=== PATIENT | female | born 1950 | race Caucasian/White ===

== ENCOUNTER → 2018-03-24 11:49 | Outpatient (CLI) | payer MEDICARE, SELFPAY ==
[2018-03-24 12:32] LABS: Add Manual Diff / Slide Review NO; Eosinophils Percent Auto 2.2 % (2-4); Hemoglobin 14.1 g/dL (12.0-16.0); Lymphocytes Percent Auto 22.8 % (25-40); Mean Corpuscular HGB Conc 33.6 % (30-36); Mean Corpuscular Hemoglobin 31.5 PG (26-34); Mean Corpuscular Volume 93.7 fL (80-100); Monocytes Percent Auto 6.2 % (3-14); Neutrophils Absolute Auto 5000 /uL (3000-5900); Neutrophils Percent Auto 67.8 % (50-75); Platelet Count 230 X10^3/uL (150-400); Red Blood Cell Count 4.48 X10^6/uL (4.0-5.2); Red Cell Distribution Width 13.3 % (11.6-14.8); White Blood Cell Count 7.4 X10^3/uL (4.5-11.0)
[2018-03-24 12:45] LABS: Hemoglobin A1C% w Est Avg Glu 4.9 % (4.0-6.0)
[2018-03-24 13:05] LABS: Appearance Urine UA CLEAR; Bilirubin Urine UA NEGATIVE (NEGATIVE); Color Urine UA YELLOW; Glucose Urine UA NEGATIVE (Normal); Ketones Urine UA TRACE (NEGATIVE); Leukocyte Esterase Urine UA NEGATIVE (NEGATIVE); Nitrite Urine UA POSITIVE (Negative); Occult Blood Urine UA 2+ (Negative); Protein Urine UA NEGATIVE (Negative); Specific Gravity Urine UA 1.025 (1.000-1.035); Urobilinogen Urine UA 0.2 E.U./dL (0.2)
[2018-03-24 13:28] LABS: Bacteria Urine Many (>30); Culture Indicated Urine Specimen Cultured; RBC Urine 0-1/HPF (0-5/HPF); Squamous Epithelial Cell Urine 1-5 /HPF; WBC Urine 1-5/HPF (0-5/HPF)
[2018-03-24 13:31] LABS: BUN Creatinine Ratio 31.4 (6-22); Blood Urea Nitrogen 22 mg/dL (7-17); Calcium 9.2 mg/dL (8.4-10.2); Carbon Dioxide 27 mmol/L (22-32); Chloride 107 mmol/L (98-107); Estimated Glomerular Filt Rate > 60.0 mL/min (>60); Glucose 121 mg/dL (80-110); HEMOLYSIS < 15 (0-50); Potassium 4.3 mmol/L (3.4-5.1); Sodium 144 mmol/L (137-145)
== END ==
PROVIDERS: PCP Internal Medicine; Visit Provider Orthopaedic Surgery
DX: Z01.818 Encounter for other preprocedural examination (principal); Z01.812 Encounter for preprocedural laboratory examination; N39.9 Disorder of urinary system, unspecified; R73.09 Other abnormal glucose
CPT/HCPCS: 36415; 80048; 81001; 83036; 85025; 87077; 87086; 87186

== ENCOUNTER 2018-04-08 06:32 | Inpatient (IN) | payer MEDICARE, SELFPAY ==
[2018-04-04 13:29] VITALS: BMI 34.3
[2018-04-08] VITALS (14 sets, daily range): BP systolic 83–137; BP diastolic 48–92; PULSE 64–82; RESP 15–20; TEMP 35.8–36.8; O2SAT 92–100; BMI 34.3
--- NOTE | 2018-04-08 | DI.RAD.S_ITS ---
PROCEDURE: XR HIP W PEL IF DONE LT 2V INDICATIONS: post operative left hip TECHNIQUE: AP pelvis and lateral view of the left hip acquired. COMPARISON: [facility], , XR PELVIS 1-2V, 04/08/2018, 8:59. FINDINGS: Bones: Patient is status post left hip arthroplasty, with hardware components in expected positions. The hip joint appears congruent. The visualized bony structures appear intact. Advanced degenerative changes of the right hip are present. There is moderate degenerative changes of the included lower lumbosacral spine. Soft tissues: Overlying postoperative changes are noted. No suspicious soft tissue densities. Expected postoperative changes within the soft tissues are within the left hip are present. No unexpected radiopaque foreign bodies are identified. IMPRESSION: Expected postoperative changes related to a left hip arthroplasty. Dictated by: Milton Gustafson M.D. on 04/08/2018 at 10:08 Approved by: Milton Gustafson M.D. on 04/08/2018 at 10:09
--- NOTE | 2018-04-08 06:30 | DI.RAD.S_ITS ---
PROCEDURE: XR PELVIS 1-2V INDICATIONS: intra-operative left hip TECHNIQUE: Intra-operative view of the pelvis and hip acquired. [facility] [place], [place] PELVIS WITH BILATERAL LATERAL HIPS, 03/28/2018, 16:32. FINDINGS: Bones: Intraoperative devices prior to placement of arthroplasty prostheses are in expected positions. No fractures or suspicious bony lesions. Soft tissues: Overlying surgical retractors are present, along with other intraoperative changes. IMPRESSION: Intraoperative image obtained during the patient's left hip arthroplasty. Dictated by: Milton Gustafson M.D. on 04/08/2018 at 9:44 Approved by: Milton Gustafson M.D. on 04/08/2018 at 9:44
[2018-04-08] MEDS: LACTATED RINGERS 1,000 ML 42 ML IV ×2 (07:10→09:45)
[2018-04-08] MEDS: VANCOMYCIN 1,000 MG/200 ML FROZ.PIGGY 200 MG IV (07:10)
--- NOTE | 2018-04-08 07:32 | P.OP.PRE_ITS ---
Pre-operative Note Interval Note Pre-op Check: Yes History & Physical Reviewed by Physician and Yes Exam Performed Changes: No H&P completed within 30 days and has changed as indicated here:: bacteria noted on preop labs, no symptoms, took abx this morning on empty stomach, mild nausea , no other symptoms
--- NOTE | 2018-04-08 07:32 | PM.OP.1 ---
Operative Date/Time/Diagnoses Date of procedure: 04/08/18 Time of procedure: 10:32 Pre-op diagnosis: left hip oa Post-op diagnosis: same Procedure & Clinicians Procedure: left total hip arthroplasty Same procedure as scheduled: Yes Indications: The patient has had progressively worsening left hip pain with radiographic changes consistent with arthritis. Non-operative management has failed and the patient has requested total hip replacement. The risks, benefits and alternatives to surgery were discussed with the patient prior to proceeding. Risks discussed included, but were not limited to, failure to relieve pain, leg length discrepancy, dislocation, stiffness, infection, nerve damage, deep venous thrombosis, pulmonary embolism, stroke, coma, heart attack, permanent paralysis and , as well as the potential need for eventual revision of the prosthetic. Surgeon: Kait Peace Convertible Power Shovel Operator: Holli Cyr Anesthesia Type: Spinal Operative Notes Findings: Severe left hip osteoarthritis Closure Type: primary Specimen(s): none sent Implants & Drains: Peace and Nephew R3 46, anthology 4 so, +4 Applied: drain(s) Estimated Blood Loss (mL): 200 Blood products transfused: none Procedure in detail: The patient was seen in the pre-operative area, where the patient identified the left hip as the operative site and this was marked with my initials. The patient received pre-operative antibiotics and was taken to the operating room and placed on the operative table in the right lateral decubitus position after satisfactory anesthesia. A telesales supervisor out was performed. The left leg was prepared from the ankle to the iliac crest with ChloroPrep in the usual fashion and draped through sterile drapes. The hip was approached through an approximately 20 cm incision centered over the greater trochanter and curving gently posteriorly as it went proximally. This was carried sharply to the fascia zahra, which was divided and retracted with a self retaining retractor. The trochanteric bursa was excised with care being taken to avoid the sciatic nerve, which was identified and protected throughout the case. The short external rotators were incised and the capsulomuscular flap was raised and tagged for later repair. The hip was dislocated, and a femoral neck osteotomy performed approximately 15 mm above the lesser trochanter. Retractors were placed around the femur. The canal was opened with a box cutting osteotome, followed by a T handled reamer and a lateralizing reamer. The chili pepper broach was then used, followed by sequential broaching until there was good stability of the broach in the femur. Retractors were placed to expose the acetabulum. The labrum and central soft tissues were removed. Reaming was performed initially going up in 2 mm increments, then 1 mm increments until good bite was obtained with an odd sized reamer. The cup 1 mm larger than the last reamer was then inserted using the appropriate anteversion guides. A trial neutral liner was placed. The broach was placed in the canal. A trial head and neck were then placed and the hip relocated and checked for leg length and stability. An intraoperative film confirmed the component position and no evidence of fracture. She had some mild instability in both maximum extension and in hyperflexion. A bony tamp was used to adjust the cup position by about 10 degrees and it was further impacted. It was checked and noted to be stable. A repeat trial reduction with a 4 anthology and a +4 head showed good stability. The patient was stable in the position of sleep, of squatting, and could be put through a range of motion with 45 degrees internal rotation without dislocation. At 90 degrees flexion, internal rotation to 60 was possible before dislocation. This was felt to be satisfactory and the appropriate components were opened, and the trials were removed. The acetabular liner was impacted into position. The final stem was then impacted into the prepared femoral canal. A brief Betadine soak was performed while trialing with head options. The hip was meticulously irrigated with normal saline. Finally the femoral head was impacted onto the stem. The acetabulum was cleared of all material and the hip relocated one final time. The capsulomuscular flap was then repaired to the greater trochanter though an awl hole using the tag sutures. The short external rotators were repaired with a black braided nylon. A deep drain was placed and brought out anteriorly. The fascia zahra was closed with interupted poyester. The subcutaneous layer was closed with barbed sutures and SteriStrips. An Aquacel Ag dressing was applied and the patient was taken to recovery having tolerated the procedure well. Complications: none Condition: stable Disposition: Acute Care Plan for aftercare: The patient will be maintained on a standard total hip replacement protocol with weight bearing as tolerated and posterior hip precautions. The patient will receive Aspirin and sequential compression devices for DVT prophylaxis. The patient will be discharged home when safe for the home environment.
[2018-04-08] MEDS: ONDANSETRON 4 MG/2 ML INJ IV ×3 (07:35→19:46)
[2018-04-08] MEDS: CELECOXIB 200 MG CAPSULE PO (07:41)
[2018-04-08] MEDS: ACETAMINOPHEN 325 MG TABLET 975 MG PO ×2 (07:42→22:43)
[2018-04-08] MEDS: CEFAZOLIN 2 GM/100 ML FROZ.PIGGY IV ×3 (07:48→23:54)
[2018-04-08] MEDS: BUPIVACAINE 0.25% W/ EPI VIAL 50 ML INJ (08:40)
[2018-04-08] MEDS: BUPIVACAINE LIPOSOME 266 MG/20 ML VIAL INJ (08:41)
[2018-04-08] MEDS: SODIUM CHLORIDE IRRIG SOLUTION 250 ML, EPINEPHrine 1 MG IRR (08:43)
[2018-04-08] MEDS: POVIDONE-IODINE 15 ML, SODIUM CHLORIDE 0.9% 250 ML TOP (08:44)
[2018-04-08] MEDS: SODIUM CHLORIDE IRRIG SOLUTION 1,000 ML BOTTLE 1000 ML IRR (08:53)
--- NOTE | 2018-04-08 10:20 | SUR.OPER ---
Lateral on padded OR bed. Gel axillary roll. Arms secured on padded armboard with pillow supporting top arm. Padded hip positioner braces x4 - anterior and posterior chest and pelvis. Additional gel pad used anterior pelvis. Gel pad under bottom leg from knee to foot and secured with tape over sheet.
--- NOTE | 2018-04-08 10:40 | SUR.PHASEI ---
X-ray at bedside to obtain left hip post-op films - per MD orders
[2018-04-08] MEDS: LACTATED RINGERS 1,000 ML 125 ML IV ×2 (14:17→23:45)
--- NOTE | 2018-04-08 14:50 | PT.IIE ---
Current Diagnoses Unilateral primary osteoarthritis, left hip (04/08/18) Surgery Performed Operation Date: 04/08/18 07:45 Actual Procedures p Total Hip Arthroplasty(Left) - Kait Peace MD Surgical History (Last Updated 04/04/18 @ 14:12 by Barbra Cueto, RN) H/O rotator cuff surgery (Acute ~07/1994) History of ankle surgery (Acute) History of cholecystectomy (Acute ~08/2000) History of lumpectomy of left breast (Acute ~2015) History of tonsillectomy (Acute) Status post rotator cuff repair (Acute) Medical History (Last Updated 04/04/18 @ 14:21 by Barbra Cueto, RN) Alcohol abuse (Acute) Alcohol abuse, uncomplicated (Acute) Difficulty sleeping (Acute) Sekou's thyroiditis (Acute) Hip pain (Acute) History of hysterectomy (Acute ~11/2004) History of shingles (Acute) Hypothyroidism, unspecified (Acute) Invasive ductal carcinoma of left breast (Acute ~2015) Macular degeneration (Acute) Major depressive disorder, recurrent, moderate (Acute) Obesity (Acute) Osteoarthritis of left hip (Acute) Osteopenia (Acute) Other specified disorders of bone density and structure, unspecified site (Acute) Postmenopausal (Acute) Primary localized osteoarthrosis of pelvic region (Acute) Right knee DJD (Acute) Tear of meniscus of left knee (Acute) Physical Therapy Inpatient Evaluation/Re-Eval M1 PT/OT-IP Prior Functional Status Start: 04/08/18 17:03 Freq: NEEDED Status: Active Protocol: Document 04/08/18 14:50 AB (Rec: 04/08/18 17:17 AB [email or web address]) Medical Review Prior Functional Status Medical History Reviewed Yes Communication able to make needs known Mobility and Gait pt stated that she is modified independent with all mobilities and ambulation without AD but has used a SPC for the last 2 weeks due to hip pain Social History Household Members none Living Arrangements RV Number of Floors (Floors) One Floor Number of Stairs To Enter/Railing? has 3 steps to enter with R handle on the door. pt plans to rent a hotel room until she is able to move better to go back home. Home Equipment Front Wheel Walker Straight Cane Employment Status Retired Additional Social History Comment pt has a community toilet in her RV park: has a walk in shower with shower chair/grab brs and a high toilet with grab bars. M2 PT-IP Current Condition Start: 04/08/18 17:03 Freq: NEEDED Status: Active Protocol: Document 04/08/18 14:50 AB (Rec: 04/08/18 17:17 AB [email or web address]) Physical Therapy Current Condition Current Condition Evaluation Date 04/08/18 Treatment Diagnosis s/p L ORLY posterior approach; difficulty in walking Onset Date 04/08/18 Precautions Posterior Hip Precautions No Hip Flexion > 90 degrees No Hip Internal Rotation No Hip Adduction Weight Bearing Status Weight Bearing Status Weight Bear as Tolerated M3 PT-IP Subjective Start: 04/08/18 17:03 Freq: NEEDED Status: Active Protocol: Document 04/08/18 14:50 AB (Rec: 04/08/18 17:17 AB [email or web address]) Subjective Physical Therapy Visit Type Type Initial Evaluation Visit Start Time 14:50 Visit Stop Time 15:30 Total Visit Minutes 40 Number of COPY CLERK Visits 0 Physical Therapy Visit Comments Patient Comments i want to make sure I can get up and use the toilet Therapy Pain Assessment Pain Present Pain Present Denied Pain M4 PT-IP Mobility and Gait Start: 04/08/18 17:03 Freq: NEEDED Status: Active Protocol: Document 04/08/18 14:50 AB (Rec: 04/08/18 17:17 AB [email or web address]) PT-Bed Mobility Assessment Supine to Sit Supine to Sit Standby Assistance Sit to Supine Sit to Supine Minimal Assistance PT-Transfer Assessment Comments Mobility Comments pt has c/o nausea and with (+) emesis prior to activity but stated that she is feeling better after vomiting and wanted to get up and use at least the bedside commode. BP in supine: 101/65. pt completed supine to sit SBA and cues. pt was able to sit on EOB SBA and tolerated ~ 15 sec and then c/o dizziness and stated that she has to lie back down and completed sit to supine min A with LE. positioned pt in bed. nurse is aware of nausea/vomiting and dizziness. BP in supine: 122/75. pt refused further activity and just wants to rest for right now. PT-Balance Assessment Sitting Balance and Reactions Static Sitting Balance Ability Good Dynamic Sitting Balance Ability Fair M5 PT-IP Objective Assessments Start: 04/08/18 17:03 Freq: NEEDED Status: Active Protocol: Document 04/08/18 14:50 AB (Rec: 04/08/18 17:17 AB [email or web address]) Orientation Orientation/Cognition Level of Alertness Alert Orientation Name Age Birthday Month Date Year Day of Week Place Situation Safety Awareness Decreased Safety Awareness Gross Range of Motion Lower Extremity ROM Assessment Within Functional Limits Strength Lower Extremity Strength Assessment Left Impaired Knee 3+/5 M6 PT-IP Treatment Start: 04/08/18 17:03 Freq: NEEDED Status: Active Protocol: Document 04/08/18 14:50 AB (Rec: 04/08/18 17:17 AB [email or web address]) Physical Therapy Treatment Education Education Provided Precautions Weight Bearing Status Post-Op Packet Safety M7 PT-IP Assessment and Plan Start: 04/08/18 17:03 Freq: NEEDED Status: Active Protocol: Document 04/08/18 14:50 AB (Rec: 04/08/18 17:17 AB [email or web address]) PT Summary Assessment and Plan Potential Rehabilitation Potential Fair Status of Condition at Evaluation Evolving Summary Impairments Pain ROM Strength Balance Coordination Sensation Tone Cognition Bed Mobility Transfers Gait Activity Tolerance Assessment Summary pt was not able to tolerate much activity today with c/o nausea with (+) emesis and dizziness. will need to assess further to determine d/ c plan but pt more than likely will require SNF rehab as pt does not have any assistance at home. Goals Bed Mobility Goal Standby Assistance Transfer Goal Standby Assistance Front Wheeled Walker Gait Goal Standby Assistance Front Wheel Walker Gait Distance 100 Days to Meet Goals 3 Frequency of Treatment Frequency Of Treatment Twice a Day Treatment Plan Physical Therapy Treatment Plan Bed Mobility Training Transfer Training Gait Training Therapeutic Exercise Balance Retraining Post Op Education Discharge Planning Hot or Cold Pack Neuromuscular Re-ed Coordination Retraining Manual Therapy Other Recommendations and Next Treatment ambulation Focus Recommendations To Nursing Amount of Assist Needed 2 Person Assist Discharge Recommendations PT Discharge Recommendations SNF Rehab
--- NOTE | 2018-04-08 15:37 | PC.NURSE ---
Ortho: Decreased BP in OR, PACU nurse started a fluid bolus there and it was finished up on floor. Initial bp was 90's systolic and then 89 systolic p 64 Sat 96, RR 14. Bp then drifted down to 78/38, pt was given some oral fluids and after that laid flat. Bp then up to 90's systolic and even has had 1 bp in the 100's systolic. RR has stayed between 14-18, Cont pulse ox is on and sats have been 95% to 100% on RA. Explained epidural precautions and need of O2 sat monitoring and freq vs. Can move toes and can feel someone touching her feet but the sensation she reports is odd. PPP, feet =/warm, brisk cap refill. Aquacel dressing c/d/i, hemovac compressed and patent for 35mls of red fluid. No void yet since surgery and on coming RN was made aware. Pt has also recently started po antibiotics for uti and message sent to OR to continue med, still has 3 more days of therapy. At the end of the shift pt had some n/v and she is receiving med for same from daa shift oncoming RN. Hopefully will feel better. Cont w/poc.
--- NOTE | 2018-04-08 22:32 | PC.NURSE ---
Addendum entered by Genevieve Gant R.N. 04/08/18 22:33: kept patient from eating this shift. Had one bout of emesis at the very beginning of shift but did not vomit for the remainder of the shift. Vital remained stable, with her blood pressure trending in the 90's systollically. She states her baseline has been in the 140's systollically. was unable to get up with physical therapy due to some light headedness and then again was unable to stand up to the bedside commode later in the shift with continued light headedness when she dangled at the bedside. Did not attempt to get out of bed. Zofran administered twice with mild effect. Tolerated a couple of crackers and some broth. Denies pain, and otherwise VSS. Hemovac compressed and draining, dressing c/d/i. CMS intact to lower extremities. Utilizes call light appropriately and makes needs known. Original Note: pt continued to complain of residual nausea and general discomfort that
[2018-04-08] MEDS: DOCUSATE 100 MG CAPSULE PO (22:44)
[2018-04-08] MEDS: ASPIRIN EC 81 MG TABLET PO (22:44)
[2018-04-09 04:05] VITALS: BP 102/66; PULSE 71; RESP 16; TEMP 36.4; O2SAT 95
[2018-04-09] MEDS: LEVOTHYROXINE 125 MCG TABLET PO (06:09)
[2018-04-09 06:24] LABS: Hemoglobin 10.9 g/dL (12.0-16.0)
--- NOTE | 2018-04-09 06:36 | PC.NURSE ---
Pt ambulated to the BR earlier this morning. CMS intact. denied n/v. BP low-asymptomatic. denied pain. call light in reach. bed alarm active. encouraged pt to drink fluids.
[2018-04-09 07:40] VITALS: BP 101/40; PULSE 70; RESP 16; TEMP 36.6; O2SAT 97
--- NOTE | 2018-04-09 08:08 | P.PN_ITS ---
Subjective Date Patient Seen: 04/09/18 Time Patient Seen: 07:48 Interval history: Post op day 1 status post L total hip arthroplasty with Dr. Peace. Patient is laying in bed comfortably without any signs of distress. She reports that her pain is well managed. She reports feeling nausea last night, however it has resolved with 4mg zofran. She also reports that PT came yesterday however she was too nauseated to participate. She reports living in a RV and would like to talk to care management regarding going to SNF. She reports ambulating to bathroom this morning with assistance. She denies and fever, chest pain, SOB, vomiting or chills. Overall, she is doing well. Exam Vital Signs (past 8 hours): - 04/09/18 04:05 Temperature 97.6 F Pulse Rate 71 Respiratory Rate 16 Blood Pressure 102/66 Pulse Oximetry 95 Oxygen Delivery Method Room Air Oxygen Flow Rate 0 Narrative Exam Narrative: Patient is AOx3. She is a pleasant lady in no acute distress. Radial and dorsalis pedis pulses 2+ and symmetric. Muscle strength 5/5 in dorsiflexion, plantarflexion and metal tank builder bilaterally. No neurological deficit noted. Sensation to LE intact with light touch bilaterally. Wound vac noted on L hip with mild output. Dressing noted on L hip and is CDI. DVT compression devices noted on LE bilaterally. Calfs are soft, non tender and compressible bilaterally. Objective Labs Result Diagrams: 04/09/18 06:09 Labs: Laboratory Results - last 24 hr 04/09/18 06:09 Hgb 10.9 L Hct 31.0 L Assessment & Plan Post-op Postoperative Procedures Operation Date: 04/08/18 07:45 Actual Procedures Side Surgeon p Total Hip Arthroplasty Left Kait Peace MD Postoperative day: 1 Postoperative status: doing well Postoperative plan: routine post-op care Postoperative plan narrative: Start mobilizing with PT on a standard total hip replacement protocol with weight bearing as tolerated and posterior hip precautions. Continue Aspirin and sequential compression devices for DVT prophylaxis. Case management has been consulted regarding SNF. Likely to be discharged to SNF in 1-2 days. Time Spent With Patient less than 15 minutes
[2018-04-09] MEDS: ACETAMINOPHEN 325 MG TABLET 975 MG PO ×3 (09:51→20:51)
[2018-04-09] MEDS: DOCUSATE 100 MG CAPSULE PO ×2 (09:52→20:51)
[2018-04-09] MEDS: ASPIRIN EC 81 MG TABLET PO ×2 (09:52→20:51)
[2018-04-09] MEDS: IBUPROFEN 600 MG TABLET PO ×2 (09:53→22:33)
[2018-04-09] MEDS: INFLUENZA VACCINE 0.5 ML SYRINGE IM (10:05)
[2018-04-09] MEDS: SULFA/TRIMETH 800/160 (DS) TABLET 1 TAB PO ×2 (10:10→20:51)
--- NOTE | 2018-04-09 10:55 | PT.IPTN ---
Current Diagnoses Unilateral primary osteoarthritis, left hip (04/08/18) Surgery Performed Operation Date: 04/08/18 07:45 Actual Procedures p Total Hip Arthroplasty(Left) - Kait Peace MD Physical Therapy Treatment Note M2 PT-IP Current Condition Start: 04/08/18 17:03 Freq: NEEDED Status: Active Protocol: Document 04/08/18 14:50 AB (Rec: 04/08/18 17:17 AB [email or web address]) Physical Therapy Current Condition Current Condition Evaluation Date 04/08/18 Treatment Diagnosis s/p L ORLY posterior approach; difficulty in walking Onset Date 04/08/18 Precautions Posterior Hip Precautions No Hip Flexion > 90 degrees No Hip Internal Rotation No Hip Adduction Weight Bearing Status Weight Bearing Status Weight Bear as Tolerated M3 PT-IP Subjective Start: 04/08/18 17:03 Freq: NEEDED Status: Active Protocol: Document 04/09/18 10:55 GGD (Rec: 04/09/18 12:35 GGD [id number]) Subjective Physical Therapy Visit Type Type Treatment Note Visit Start Time 10:25 Visit Stop Time 10:55 Total Visit Minutes 30 Number of CREATIVE DEVELOPER Visits 1 Physical Therapy Visit Comments Patient Comments Pt states she been getting up a lot to go to the bathroom. Therapy Pain Assessment Pain When Pain Assessed At Rest Pain Present Pain Present Denied Pain Location Left Hip Intensity 1 Scale Used Numeric (1 - 10) Pain Management Techniques Timing of Activity with Medications M4 PT-IP Mobility and Gait Start: 04/08/18 17:03 Freq: NEEDED Status: Active Protocol: Document 04/09/18 10:55 GGD (Rec: 04/09/18 12:35 GGD [id number]) PT-Transfer Assessment Sit to and From Stand Sit to and from Stand Contact Guard Assistance Use of Upper Extremities Equipment Transfer Assistive Device Bed Rail Front Wheeled Walker Orthotic/Prosthetic Devices or Brace: No Transfers Transfer Destination Chair Comments Mobility Comments BP in sitting 126/58 Gait Assessment Gait Gait Assistance Required: Contact Guard Assist Distance (Feet) 100 Able to Maintain Weight Bearing Status Yes During Gait Assistive Devices Assistive Device Gait Belt Front Wheeled Walker Orthotic/Prosthetic Devices or Brace: No Gait Deviations General Gait Pattern Antalgic Decreased Stride Length Factors Limiting Gait Function Factors Limiting Gait Function Limited Range of Motion Pain M5 PT-IP Objective Assessments Start: 04/08/18 17:03 Freq: NEEDED Status: Active Protocol: Document 04/08/18 14:50 AB (Rec: 04/08/18 17:17 AB [email or web address]) Orientation Orientation/Cognition Level of Alertness Alert Orientation Name Age Birthday Month Date Year Day of Week Place Situation Safety Awareness Decreased Safety Awareness Gross Range of Motion Lower Extremity ROM Assessment Within Functional Limits Strength Lower Extremity Strength Assessment Left Impaired Knee 3+/5 M6 PT-IP Treatment Start: 04/08/18 17:03 Freq: NEEDED Status: Active Protocol: Document 04/09/18 10:55 GGD (Rec: 04/09/18 12:35 GGD [id number]) Physical Therapy Treatment Exercises Exercises Ankle Pumps Gluteal Sets Quad Sets Supine Hip Abduction Seated Knee Flexion/Extension Education Education Provided Precautions M7 PT-IP Assessment and Plan Start: 04/08/18 17:03 Freq: NEEDED Status: Active Protocol: Document 04/09/18 10:55 GGD (Rec: 04/09/18 12:35 GGD [id number]) PT Summary Assessment and Plan Summary Assessment Summary Pt able to progress gait. She is improving with mobility and pain control. She had no dizziness with gait. She may need SNF rehab, due to not having assistance at home and living in without a bathroom. Frequency of Treatment Frequency Of Treatment Twice a Day Treatment Plan Physical Therapy Treatment Plan Bed Mobility Training Transfer Training Gait Training Therapeutic Exercise Balance Retraining Post Op Education Discharge Planning Hot or Cold Pack Neuromuscular Re-ed Coordination Retraining Manual Therapy Recommendations To Nursing Amount of Assist Needed 1 Person Assist Discharge Recommendations PT Discharge Recommendations SNF Rehab
--- NOTE | 2018-04-09 15:06 | OT.IP.EVAL ---
Current Diagnoses Unilateral primary osteoarthritis, left hip (04/08/18) Surgery Performed Operation Date: 04/08/18 07:45 Actual Procedures p Total Hip Arthroplasty(Left) - Kait Peace MD Past Medical History (Last Updated 04/04/18 @ 14:21 by Barbra Cueto, RN) Alcohol abuse (Acute) Alcohol abuse, uncomplicated (Acute) Difficulty sleeping (Acute) Sekou's thyroiditis (Acute) Hip pain (Acute) History of hysterectomy (Acute ~11/2004) History of shingles (Acute) Hypothyroidism, unspecified (Acute) Invasive ductal carcinoma of left breast (Acute ~2016) Macular degeneration (Acute) Major depressive disorder, recurrent, moderate (Acute) Obesity (Acute) Osteoarthritis of left hip (Acute) Osteopenia (Acute) Other specified disorders of bone density and structure, unspecified site (Acute) Postmenopausal (Acute) Primary localized osteoarthrosis of pelvic region (Acute) Right knee DJD (Acute) Tear of meniscus of left knee (Acute) Surgical History (Last Updated 04/04/18 @ 14:12 by Barbra Cueto RN) H/O rotator cuff surgery (Acute ~07/1994) History of ankle surgery (Acute) History of cholecystectomy (Acute ~08/2000) History of lumpectomy of left breast (Acute ~2015) History of tonsillectomy (Acute) Status post rotator cuff repair (Acute) Occupational Therapy Inpatient Evaluation/Re-Eval M1 PT/OT-IP Prior Functional Status Start: 04/08/18 17:03 Freq: NEEDED Status: Active Protocol: Document 04/09/18 15:06 FABIAN (Rec: 04/09/18 17:21 [facility] [id number]) Medical Review Prior Functional Status Medical History Reviewed Yes Diet/Fluid Consistency Regular Communication WNL Mobility and Gait pt stated that she is modified independent with all mobilities and ambulation without AD but has used a SPC for the last 2 weeks due to hip pain Activities of Daily Living and IADL's Pt independent and drives 20 ft self contained RV. Social History Household Members none Living Arrangements RV Number of Floors (Floors) One Floor Number of Stairs To Enter/Railing? 3 with R hand external handle on side door of 20 ft RV Additional Social History Comment RV has very low camping toilet. Pt uses community bathroom for toileting and showering. Pt plans to go to hot room until L ORLY posterior hip precautions d/c'd. M2 OT-IP Current Condition Start: 04/09/18 17:06 Freq: Status: Active Protocol: Document 04/09/18 15:06 PJM (Rec: 04/09/18 17:21 PJM [email or web address]) Occupational Therapy Current Condition Current Condition Evaluation Date 04/09/18 Treatment Diagnosis decreased self care, functional mobility after L ORLY Diagnosis Onset Date 04/08/18 Post Operative Precautions Posterior Hip Precautions No Hip Flexion > 90 degrees No Hip Internal Rotation No Hip Adduction Weight Bearing Status Weight Bearing Status Weight Bear as Tolerated M3 OT- IP Subjective and Pain Start: 04/09/18 17:06 Freq: Status: Active Protocol: Document 04/09/18 15:06 PJM (Rec: 04/09/18 17:21 PJM [email or web address]) OT- Subjective Occupational Therapy Visit Type Type Initial Evaluation Visit Start Time 14:22 Visit Stop Time 15:06 Total Visit Minutes 44 Occupational Therapy Visit Comments Patient Comments I think I need to go to rehab , then I will get an accessible hotel room until my precautions are done. Patient/Caregiver Goals to go to [place] in her RV for the winter OT Pain Assessment Pain When Pain Assessed At Rest Pain Present Pain Present Pain Reported Location Left Hip Intensity 4 Scale Used Numeric (1 - 10) Description Aching Acute M4 OT- IP ADL's Start: 04/09/18 17:06 Freq: Status: Active Protocol: Document 04/09/18 15:06 PJM (Rec: 04/09/18 17:21 PJM [email or web address]) OT [id number] General Evaluation Self-Feeding Ability Independent Comments OT Self-Feeding Comments in bed or chair OT ADL-Grooming General Evaluation Grooming Ability Standby Assistance Areas Needing Assistance Retrieving/Set-up of Grooming Items Combing/Brushing Hair Face Washing Comments OT Grooming Comments in bed or chair OT ADL-Oral Care General Eval Oral Care Ability Standby Assistance Areas of Assistance Retrieving/Set-Up of Items Devices Oral Care Devices Toothbrush Comments Oral Care Comments in bed or chair OT ADL-Dressing General Eval Upper Body Dressing Ability Standby Assistance Lower Body Dressing Ability Maximum Assistance Areas Needing Assistance Underpants/Brief Pants/Shorts Socks Shoes Assistive Devices Dressing Assistive Devices Long Handled Shoe Horn Organic Lab Worker Sock Aid Comments OT Dressing Comments Pt has cotton header and long shoe horn; daughter to bring them in. Provided hard sock aid. OT ADL-Toileting Comments OT Toileting Comments did not occur this session; pt concerned about nida care and provided education re: toilet paper aids and resources OT ADL-Bathing Comments OT Bathing Comments to be assessed as activity tolerance improves M5 OT- IP IADL's Start: 04/09/18 17:06 Freq: Status: Active Protocol: Document 04/09/18 15:06 PJM (Rec: 04/09/18 17:21 PJM NR) OT-Instrumental Activities of Daily Living Deficits IADL Deficits Identified Deficits Home Safety Awareness Awareness of Need for Assistance at Home Good Awareness Ability to Problem Solve Emergency Able to Problem Solve Situations Medication Management Medication Management No Deficits Identified Money Management Money Management No Deficits Identified Meal Preparation Meal Preparation Comments pt will need assist with grocery shopping and meal prep Driving Driving Comments pt needs assist at present; has high 20 ft RV to enter M6 OT- IP Functional Cognition Start: 04/09/18 17:06 Freq: Status: Active Protocol: Document 04/09/18 15:06 PJM (Rec: 04/09/18 17:21 PJM NR) Cognitive Factors Limiting Selfcare Function Cognitive Ability Level of Alertness Alert Patient Orientation Name Age Birthday Month Date Year Day of Week Place Situation Attention Span Ability Capable of Focused Attention Capable of Sustained Attention Ability to Follow Commands Able to Follow One Step Commands Memory Description No Deficits Noted Safety Awareness No Deficits Noted Problem Solving Ability No deficits Noted Cognitive Comments Cognitive Assessment Comments appears WFL OT- Vision and Hearing OT- Hearing Assessment OT- Hearing Assessment WFL OT- Vision Assessment Visual Acuity WFL Glasses All The Time Vision Assessment Comments pt denies recent changes M7 OT- IP Mobility and Balance Start: 04/09/18 17:06 Freq: Status: Active Protocol: Document 04/09/18 15:06 PJM (Rec: 04/09/18 17:21 PJ NR) OT-Transfer Assessment Comments Mobility Comments see P.T. notes OT- Gait Assessment Comments Gait Ability Comments see P.T. notes OT- Balance Assessment Comments Other Balance Tests/Deviations/Treatment see P.T. notes : M8 OT- IP Objective Assessments Start: 04/09/18 17:06 Freq: Status: Active Protocol: Document 04/09/18 15:06 PJM (Rec: 04/09/18 17:21 PJM [email or web address]) OT Gross Range of Motion Upper Extremity Range of Motion Assessment Within Functional Limits OT Strength Upper Extremity Strength Assessment Within Functional Limits OT- Coordination Assessment Comments Coordination Comments BUE WFL OT-Muscle Tone Assessment Muscle Tone WNL Yes OT Sensation Assessment Comments Summary Comments BUE WNL M9 OT- IP Assessment and Plan Start: 04/09/18 17:06 Freq: Status: Active Protocol: Document 04/09/18 15:06 PJShawna (Rec: 04/09/18 17:21 PJM [email or web address]) OT Summary Assessment and Plan Potential Rehabilitation Potential Excellent Analytic Complexity at Evaluation Low Summary OT Impairments Pain Strength Balance Functional Mobility Grooming Dressing Toileting Bathing Toilet Transfers Shower Transfers Assessment Summary Low complexity OT assessment completed with emphasis on self care skills within posterior total hip precautions. Pt currently has significant performance deficits in all functional mobility, transfers standing grooming, lower body dressing, bathing, toileting and all IADLS. She normally lives alone in 20 ft self contained and travels to [facility] in summer and to [place] in winter. Pt not safe to return back to . Recommend SNF at d/c, after which pt plans to stay in accessible hotel room until hip precautions have been discontinued. Goals Grooming Goal Contact Guard Assistance Dressing Goal Minimal Assistance Toileting Goal Standby Assistance Toilet Paper Aid Bathing Goal Minimal Assistance Grab Bars Hand Held Shower Sprayer Long Handled Sponge or [place] Toilet Transfer Goal Contact Guard Assistance Shower Transfer Goal Contact Guard Assistance Patient/Caregiver Education Goal Demonstrate Post-Op Precautions Demonstrate Energy Conservation and Pacing Caregiver Independent Assisting Patient OT-Other Goals Grooming to be done standing at sink Days to Meet Goals 3 Frequency of Treatment Frequency Of Treatment Once a Day Treatment Plan OT Treatment Plan ADL Training Functional Mobility Patient/Family Education Discharge Planning Discharge Recommendations OT Discharge Recommendations SNF Rehab Home Equipment Needs pt to order toilet paper aid, build up height of camping toilet in RV
[2018-04-09 16:07] VITALS: BP 87/52; PULSE 74; RESP 16; TEMP 36.8; O2SAT 95
--- NOTE | 2018-04-09 16:29 | PT.IPTN ---
Current Diagnoses Unilateral primary osteoarthritis, left hip (04/08/18) Surgery Performed Operation Date: 04/08/18 07:45 Actual Procedures p Total Hip Arthroplasty(Left) - Kait Peace MD Physical Therapy Treatment Note M2 PT-IP Current Condition Start: 04/08/18 17:03 Freq: NEEDED Status: Active Protocol: Document 04/08/18 14:50 AB (Rec: 04/08/18 17:17 AB [email or web address]) Physical Therapy Current Condition Current Condition Evaluation Date 04/08/18 Treatment Diagnosis s/p L ORLY posterior approach; difficulty in walking Onset Date 04/08/18 Precautions Posterior Hip Precautions No Hip Flexion > 90 degrees No Hip Internal Rotation No Hip Adduction Weight Bearing Status Weight Bearing Status Weight Bear as Tolerated M3 PT-IP Subjective Start: 04/08/18 17:03 Freq: NEEDED Status: Active Protocol: Document 04/09/18 16:20 GGD (Rec: 04/09/18 16:29 GGD [id number]) Subjective Physical Therapy Visit Type Type Treatment Note Visit Start Time 15:55 Visit Stop Time 16:20 Total Visit Minutes 25 Number of WORK ORDER DETAILER Visits 2 Physical Therapy Visit Comments Patient Comments Pt states she having trouble getting in and out of bed. Therapy Pain Assessment Pain When Pain Assessed During Mobility Pain Present Pain Present Pain Reported Location Left Hip Intensity 3 Scale Used Numeric (1 - 10) Pain Management Techniques Timing of Activity with Medications M4 PT-IP Mobility and Gait Start: 04/08/18 17:03 Freq: NEEDED Status: Active Protocol: Document 04/09/18 16:20 GGD (Rec: 04/09/18 16:29 GGD [id number]) PT-Bed Mobility Assessment Supine to Sit Supine to Sit Standby Assistance Head of Bed Elevated Bedrails Sit to Supine Sit to Supine Contact Guard Assistance Scooting Scooting to Edge of Bed Minimal Assistance PT-Transfer Assessment Sit to and From Stand Sit to and from Stand Contact Guard Assistance Use of Upper Extremities Equipment Transfer Assistive Device Gait Belt Front Wheeled Walker Orthotic/Prosthetic Devices or Brace: No Transfers Transfer Destination Bed Toilet Gait Assessment Gait Gait Assistance Required: Contact Guard Assist Distance (Feet) 225 Able to Maintain Weight Bearing Status Yes During Gait Assistive Devices Assistive Device Gait Belt Front Wheeled Walker Orthotic/Prosthetic Devices or Brace: No Gait Deviations General Gait Pattern Decreased Stride Length Factors Limiting Gait Function Factors Limiting Gait Function Decreased Strength Limited Range of Motion Pain M5 PT-IP Objective Assessments Start: 04/08/18 17:03 Freq: NEEDED Status: Active Protocol: Document 04/08/18 14:50 AB (Rec: 04/08/18 17:17 AB [email or web address]) Orientation Orientation/Cognition Level of Alertness Alert Orientation Name Age Birthday Month Date Year Day of Week Place Situation Safety Awareness Decreased Safety Awareness Gross Range of Motion Lower Extremity ROM Assessment Within Functional Limits Strength Lower Extremity Strength Assessment Left Impaired Knee 3+/5 M6 PT-IP Treatment Start: 04/08/18 17:03 Freq: NEEDED Status: Active Protocol: Document 04/09/18 16:20 GGD (Rec: 04/09/18 16:29 GGD [id number]) Physical Therapy Treatment Exercises Exercises Ankle Pumps Gluteal Sets Quad Sets Heel Slides Supine Hip Abduction Education Education Provided Precautions M7 PT-IP Assessment and Plan Start: 04/08/18 17:03 Freq: NEEDED Status: Active Protocol: Document 04/09/18 16:20 GGD (Rec: 04/09/18 16:29 GGD [id number]) PT Summary Assessment and Plan Summary Assessment Summary Pt improving with mobility. She needs cues for hip precautions during transfers and with turns. She able to progress gait distance without unsteadiness. Frequency of Treatment Frequency Of Treatment Twice a Day Treatment Plan Physical Therapy Treatment Plan Bed Mobility Training Transfer Training Gait Training Therapeutic Exercise Balance Retraining Post Op Education Discharge Planning Hot or Cold Pack Neuromuscular Re-ed Coordination Retraining Manual Therapy Recommendations To Nursing Amount of Assist Needed 1 Person Assist Discharge Recommendations PT Discharge Recommendations SNF Rehab
[2018-04-09] MEDS: OXYCODONE IR 5 MG TABLET PO ×2 (19:07→22:34)
[2018-04-09 20:11] VITALS: BP 100/60; PULSE 75; RESP 16; TEMP 37.1; O2SAT 95
--- NOTE | 2018-04-09 22:17 | PC.NURSE ---
04/09 2217; pt stating to feeling a lot better this evening compared to yesterday evening. Verbalized some pain to left hip and agreed to take pain medication to which she became emotional and teared up. Reassured and comforted patient. VSS on RA, had one low BP early in shift, but was asymptomatic and normalized. Tolerating PO intake, standby to minimum assist with transfers and toileting. Dressing is C/D/I and CMS is stated to be intact. Left leg observed to slightly pinker and more edematous than right, will continue to monitor.
[2018-04-09 23:30] VITALS: BP 96/62; PULSE 77; RESP 16; TEMP 36.8; O2SAT 94
[2018-04-10 04:25] VITALS: BP 114/71; PULSE 67; RESP 17; TEMP 36.6; O2SAT 97
[2018-04-10] MEDS: LEVOTHYROXINE 125 MCG TABLET PO (05:48)
[2018-04-10] MEDS: IBUPROFEN 600 MG TABLET PO (05:49)
[2018-04-10 07:45] VITALS: BP 118/66; PULSE 67; RESP 16; TEMP 36.5; O2SAT 96
--- NOTE | 2018-04-10 08:30 | PM.PNPO.1 ---
Subjective Date Patient Seen: 04/10/18 Time Patient Seen: 08:31 Interval history: POD #2 status post left total hip arthroplasty posterior approach with Dr. Peace. Patient has been having difficulty getting in and out of bed by herself. She has been slow to ambulate with PT. She complains of pain in her hip this morning. She did have some nausea postoperatively but this has resolved. Exam Vital Signs (past 8 hours): - 04/10/18 04:25 Temperature 97.9 F Pulse Rate 67 Respiratory Rate 17 Blood Pressure 114/71 Pulse Oximetry 97 Oxygen Delivery Method Room Air Oxygen Flow Rate 0 Narrative Exam Narrative: Patient is sitting at bedside chair in no acute distress. She is alert and oriented x3. Calves are soft, compressible, nontender bilaterally. Sensation intact to light touch throughout bilateral lower extremities. She is able to actively dorsiflex and plantar flex. Objective Labs Result Diagrams: 04/09/18 06:09 Assessment & Plan Post-op (1) S/P total hip arthroplasty: Current Visit: Yes Status: Acute (2) Thyroid disease: Current Visit: Yes Status: Acute Postoperative Procedures Operation Date: 04/08/18 07:45 Actual Procedures Side Surgeon p Total Hip Arthroplasty Left Kait Peace MD POD #2 status post left total hip arthroplasty posterior approach with Dr. Peace. Continue to mobilize with physical therapy. Continue current pain control. Patient has been slow to mobilize and difficulty getting in and out of bed. She will likely need a SNF at discharge. Possible DC tomorrow to SNF.
[2018-04-10] MEDS: OXYCODONE IR 5 MG TABLET PO ×3 (08:59→21:09)
[2018-04-10] MEDS: ACETAMINOPHEN 325 MG TABLET 975 MG PO ×3 (09:00→21:09)
[2018-04-10] MEDS: ASPIRIN EC 81 MG TABLET PO ×2 (09:02→21:09)
[2018-04-10] MEDS: SULFA/TRIMETH 800/160 (DS) TABLET 1 TAB PO ×2 (09:02→21:09)
[2018-04-10] MEDS: DOCUSATE 100 MG CAPSULE PO ×2 (09:02→21:09)
--- NOTE | 2018-04-10 09:12 | CM.DPC ---
Referral faxed to Jacqueline Gomez
[2018-04-10] MEDS: hydrOXYzine pamoate 25 MG CAPSULE PO ×3 (09:58→21:09)
--- NOTE | 2018-04-10 11:40 | PT.IPTN ---
Current Diagnoses Disorder of thyroid, unspecified (04/08/18) Unilateral primary osteoarthritis, left hip (04/08/18) Presence of unspecified artificial hip joint (04/08/18) Surgery Performed Operation Date: 04/08/18 07:45 Actual Procedures p Total Hip Arthroplasty(Left) - Kait Peace MD Physical Therapy Treatment Note M2 PT-IP Current Condition Start: 04/08/18 17:03 Freq: NEEDED Status: Active Protocol: Document 04/08/18 14:50 AB (Rec: 04/08/18 17:17 AB [email or web address]) Physical Therapy Current Condition Current Condition Evaluation Date 04/08/18 Treatment Diagnosis s/p L ORLY posterior approach; difficulty in walking Onset Date 04/08/18 Precautions Posterior Hip Precautions No Hip Flexion > 90 degrees No Hip Internal Rotation No Hip Adduction Weight Bearing Status Weight Bearing Status Weight Bear as Tolerated M3 PT-IP Subjective Start: 04/08/18 17:03 Freq: NEEDED Status: Active Protocol: Document 04/10/18 11:40 GGD (Rec: 04/10/18 12:59 GGD [id number]) Subjective Physical Therapy Visit Type Type Treatment Note Visit Start Time 11:20 Visit Stop Time 11:40 Total Visit Minutes 30 Number of WASHER MEAT Visits 3 Physical Therapy Visit Comments Patient Comments Pt states her spasms have decrease and want's to walk. Therapy Pain Assessment Pain When Pain Assessed During Mobility Pain Present Pain Present Pain Reported Location Left Hip Intensity 4 Scale Used Numeric (1 - 10) M4 PT-IP Mobility and Gait Start: 04/08/18 17:03 Freq: NEEDED Status: Active Protocol: Document 04/10/18 11:40 GGD (Rec: 04/10/18 12:59 GGD [id number]) PT-Bed Mobility Assessment Supine to Sit Supine to Sit Standby Assistance Bedrails Scooting Scooting to Edge of Bed Minimal Assistance PT-Transfer Assessment Sit to and From Stand Sit to and from Stand Contact Guard Assistance Use of Upper Extremities Equipment Transfer Assistive Device Gait Belt Front Wheeled Walker Orthotic/Prosthetic Devices or Brace: No Transfers Transfer Destination Chair Gait Assessment Gait Gait Assistance Required: Contact Guard Assist Distance (Feet) 100 Able to Maintain Weight Bearing Status Yes During Gait Assistive Devices Assistive Device Gait Belt Front Wheeled Walker Orthotic/Prosthetic Devices or Brace: No Gait Deviations General Gait Pattern Decreased Stride Length Factors Limiting Gait Function Factors Limiting Gait Function Decreased Strength Limited Range of Motion Pain M5 PT-IP Objective Assessments Start: 04/08/18 17:03 Freq: NEEDED Status: Active Protocol: Document 04/08/18 14:50 AB (Rec: 04/08/18 17:17 AB [email or web address]) Orientation Orientation/Cognition Level of Alertness Alert Orientation Name Age Birthday Month Date Year Day of Week Place Situation Safety Awareness Decreased Safety Awareness Gross Range of Motion Lower Extremity ROM Assessment Within Functional Limits Strength Lower Extremity Strength Assessment Left Impaired Knee 3+/5 M6 PT-IP Treatment Start: 04/08/18 17:03 Freq: NEEDED Status: Active Protocol: Document 04/10/18 11:40 GGD (Rec: 04/10/18 12:59 GGD [id number]) Physical Therapy Treatment Exercises Exercises Ankle Pumps Gluteal Sets Quad Sets Heel Slides Supine Hip Abduction Education Education Provided Precautions M7 PT-IP Assessment and Plan Start: 04/08/18 17:03 Freq: NEEDED Status: Active Protocol: Document 04/10/18 11:40 GGD (Rec: 04/10/18 12:59 GGD [id number]) PT Summary Assessment and Plan Summary Assessment Summary Pt was limited by increase in pain for gait. She improved with hip precautions. She needing less assist with bed mobility. Frequency of Treatment Frequency Of Treatment Twice a Day Treatment Plan Physical Therapy Treatment Plan Bed Mobility Training Transfer Training Gait Training Therapeutic Exercise Balance Retraining Post Op Education Discharge Planning Hot or Cold Pack Neuromuscular Re-ed Coordination Retraining Manual Therapy Recommendations To Nursing Amount of Assist Needed 1 Person Assist Discharge Recommendations PT Discharge Recommendations SNF Rehab
[2018-04-10 12:19] VITALS: BP 107/59; PULSE 68; RESP 16; TEMP 36.7; O2SAT 95
--- NOTE | 2018-04-10 13:35 | OT.IP.TRT ---
Current Diagnoses Disorder of thyroid, unspecified (04/08/18) Unilateral primary osteoarthritis, left hip (04/08/18) Presence of unspecified artificial hip joint (04/08/18) Surgery Performed Operation Date: 04/08/18 07:45 Actual Procedures p Total Hip Arthroplasty(Left) - Kait Peace MD Occupational Therapy Treatment Note M2 OT-IP Current Condition Start: 04/09/18 17:06 Freq: Status: Active Protocol: Document 04/09/18 15:06 PJM (Rec: 04/09/18 17:21 PJM [email or web address]) Occupational Therapy Current Condition Current Condition Evaluation Date 04/09/18 Treatment Diagnosis decreased self care, functional mobility after L ORLY Diagnosis Onset Date 04/08/18 Post Operative Precautions Posterior Hip Precautions No Hip Flexion > 90 degrees No Hip Internal Rotation No Hip Adduction Weight Bearing Status Weight Bearing Status Weight Bear as Tolerated M3 OT- IP Subjective and Pain Start: 04/09/18 17:06 Freq: Status: Active Protocol: Document 04/10/18 13:35 PJM (Rec: 04/10/18 15:05 PJM [email or web address]) OT- Subjective Occupational Therapy Visit Type Type Treatment Note Visit Start Time 13:11 Visit Stop Time 13:35 Total Visit Minutes 24 Occupational Therapy Visit Comments Patient Comments I don't think I will need that toilet paper aid. I tried things out in bathroom today with the nurse. OT Pain Assessment Pain When Pain Assessed After Treatment Pain Present Pain Present Pain Reported Location Left Hip Intensity 6 Scale Used Numeric (1 - 10) Description Cramping M4 OT- IP ADL's Start: 04/09/18 17:06 Freq: Status: Active Protocol: Document 04/10/18 13:35 PJM (Rec: 04/10/18 15:05 PJM [email or web address]) OT ADL-Dressing General Eval Lower Body Dressing Ability Minimal Assistance Areas Needing Assistance Retrieving/Set-up of Clothing Socks Assistive Devices Dressing Assistive Devices Radiographer Cardiac Catheterization Sock Aid Comments OT Dressing Comments Pt able to doff and don R sock with leaflet or newspaper deliverer and sock aid with min assist for initial set up of sock aid. Pt then developed significant cramping in L thigh and unable to practice L sock or try other lower body dressing due to inability to sit near edge of chair for task. RN in and not able to provide any more meds at present. Pt relieved pain by standing up, then sitting in chair with legs elevated. M7 OT- IP Mobility and Balance Start: 04/09/18 17:06 Freq: Status: Active Protocol: Document 04/10/18 13:35 PJ (Rec: 04/10/18 15:05 [facility] [email or web address]) OT-Transfer Assessment Sit to and From Stand Sit to and from Stand Contact Guard Assistance 1 Person Assistance Devices Transfer Assistive Devices Front Wheeled Walker Comments Mobility Comments Pt wanting information about leg lifters, but suggested she try her straight cane instead . Pt will have daughter bring it in. OT- Balance Assessment Sitting Balance and Reactions Static Sitting Balance Ability Good Dynamic Sitting Balance Ability Good Standing Balance and Reactions Static Standing Balance Ability Good M9 OT- IP Assessment and Plan Start: 04/09/18 17:06 Freq: Status: Active Protocol: Document 04/10/18 13:35 PJM (Rec: 04/10/18 15:05 [facility] [email or web address]) OT Summary Assessment and Plan Summary OT Impairments Pain Progress Towards Goals Slow Progress due to Pain Assessment Summary L thigh cramping limiting participation in lower body dressing practice today as described above. Pt needs to be completely independent in all self care and light IADLS prior to return to her 20 ft RV, as she lives alone in tight quarters. Pt will benefit from further OT services at SNF when medically stable. Goals Days to Meet Goals 3 Frequency of Treatment Frequency Of Treatment Once a Day Treatment Plan OT Treatment Plan ADL Training Functional Mobility Patient/Family Education Discharge Planning Discharge Recommendations OT Discharge Recommendations SNF Rehab
--- NOTE | 2018-04-10 13:57 | PC.NURSE ---
Pt having some muscle spasms to L.hip. Given 1 oxycodone and 1 vistaril which helped and she was able to ambulate to the bathroom. Dressing intact to l.hip. CMS WNl and PPx2.
[2018-04-10 16:10] VITALS: BP 116/60; PULSE 81; RESP 16; TEMP 36.9; O2SAT 94
--- NOTE | 2018-04-10 16:18 | PT.IPTN ---
Current Diagnoses Disorder of thyroid, unspecified (04/08/18) Unilateral primary osteoarthritis, left hip (04/08/18) Presence of unspecified artificial hip joint (04/08/18) Surgery Performed Operation Date: 04/08/18 07:45 Actual Procedures p Total Hip Arthroplasty(Left) - Kait Peace MD Physical Therapy Treatment Note M2 PT-IP Current Condition Start: 04/08/18 17:03 Freq: NEEDED Status: Active Protocol: Document 04/08/18 14:50 AB (Rec: 04/08/18 17:17 AB [email or web address]) Physical Therapy Current Condition Current Condition Evaluation Date 04/08/18 Treatment Diagnosis s/p L ORLY posterior approach; difficulty in walking Onset Date 04/08/18 Precautions Posterior Hip Precautions No Hip Flexion > 90 degrees No Hip Internal Rotation No Hip Adduction Weight Bearing Status Weight Bearing Status Weight Bear as Tolerated M3 PT-IP Subjective Start: 04/08/18 17:03 Freq: NEEDED Status: Active Protocol: Document 04/10/18 16:15 GGD (Rec: 04/10/18 16:18 GGD [email or web address]) Subjective Physical Therapy Visit Type Type Treatment Note Visit Start Time 15:50 Visit Stop Time 16:15 Total Visit Minutes 25 Number of ASP NET SOFTWARE DEVELOPER Visits 4 Physical Therapy Visit Comments Patient Comments Pt states she feeling much better. Therapy Pain Assessment Pain When Pain Assessed During Mobility Pain Present Pain Present Pain Reported Location Left Hip Intensity 2 Scale Used Numeric (1 - 10) M4 PT-IP Mobility and Gait Start: 04/08/18 17:03 Freq: NEEDED Status: Active Protocol: Document 04/10/18 16:15 GGD (Rec: 04/10/18 16:18 GGD [email or web address]) PT-Bed Mobility Assessment Supine to Sit Supine to Sit Standby Assistance Bedrails Sit to Supine Sit to Supine Standby Assistance Scooting Scooting to Edge of Bed Standby Assistance PT-Transfer Assessment Sit to and From Stand Sit to and from Stand Contact Guard Assistance Use of Upper Extremities Equipment Transfer Assistive Device Gait Belt Front Wheeled Walker Orthotic/Prosthetic Devices or Brace: No Transfers Transfer Destination Bed Gait Assessment Gait Gait Assistance Required: Contact Guard Assist Distance (Feet) 225 Able to Maintain Weight Bearing Status Yes During Gait Assistive Devices Assistive Device Gait Belt Front Wheeled Walker Orthotic/Prosthetic Devices or Brace: No Gait Deviations General Gait Pattern Decreased Stride Length Factors Limiting Gait Function Factors Limiting Gait Function Decreased Strength Limited Range of Motion Pain M5 PT-IP Objective Assessments Start: 04/08/18 17:03 Freq: NEEDED Status: Active Protocol: Document 04/08/18 14:50 AB (Rec: 04/08/18 17:17 AB [email or web address]) Orientation Orientation/Cognition Level of Alertness Alert Orientation Name Age Birthday Month Date Year Day of Week Place Situation Safety Awareness Decreased Safety Awareness Gross Range of Motion Lower Extremity ROM Assessment Within Functional Limits Strength Lower Extremity Strength Assessment Left Impaired Knee 3+/5 M6 PT-IP Treatment Start: 04/08/18 17:03 Freq: NEEDED Status: Active Protocol: Document 04/10/18 16:15 GGD (Rec: 04/10/18 16:18 GGD [email or web address]) Physical Therapy Treatment Exercises Exercises Gluteal Sets Quad Sets Heel Slides Supine Hip Abduction Education Education Provided Precautions M7 PT-IP Assessment and Plan Start: 04/08/18 17:03 Freq: NEEDED Status: Active Protocol: Document 04/10/18 16:15 GGD (Rec: 04/10/18 16:18 GGD [email or web address]) PT Summary Assessment and Plan Summary Assessment Summary Pt improving with mobility.She able to progress gait to step thourgh gait pattern. She improved with bed moblilty and pain control. Frequency of Treatment Frequency Of Treatment Twice a Day Treatment Plan Physical Therapy Treatment Plan Bed Mobility Training Transfer Training Gait Training Therapeutic Exercise Balance Retraining Post Op Education Discharge Planning Hot or Cold Pack Neuromuscular Re-ed Coordination Retraining Manual Therapy Recommendations To Nursing Amount of Assist Needed 1 Person Assist Discharge Recommendations PT Discharge Recommendations SNF Rehab
[2018-04-11] MEDS: OXYCODONE IR 5 MG TABLET PO ×2 (01:02→05:25)
[2018-04-11 04:24] VITALS: BP 123/95; PULSE 75; RESP 15; TEMP 36.9; O2SAT 99
[2018-04-11] MEDS: hydrOXYzine pamoate 25 MG CAPSULE PO ×2 (05:26→13:07)
[2018-04-11] MEDS: LEVOTHYROXINE 125 MCG TABLET PO (05:26)
--- NOTE | 2018-04-11 07:19 | PM.DS.1 ---
History of Present Illness Date Patient Seen: 04/11/18 Chief complaint: total hip arthroplasty [id number] Narrative: Patient seen bedside s/p L. ORLY POD #2. Patient doing well, pain is controlled. She denies CP, SOB, N/V. Ready for d/c to SNF today, 04/11/18. Discharge Providers Date of admission: 04/08/18 06:32 Primary care physician: Maribel Yanes MD Consults: 04/08/18 11:35 Consult to Occupational Therapy Evaluate & Treat Comment: Physician Instructions: Evaluate and treat 04/08/18 12:48 Consult to Discharge Planning Routine Comment: Consult to Physical Therapy Evaluate & Treat Comment: oob today Physician Instructions: post op ORLY protocol Consult to Respiratory Therapy Evaluate & Treat Comment: Physician Instructions: Evaluate and treat Discharge provider: Holli Cyr PA-C Summary Discharge Diagnosis: left hip osteoarthritis Hospital Course: Patient was admitted to the hospital s/p L. ORLY on 04/08/[address] Peace. She tolerated the procedure well with no complications. She was transitioned to the acute care floor where she was evaluated by PT/OT and recommended for d/c to a SNF. Patient was stable and ready for d/c on 04/11/18. Status at Discharge Cognitive/behavioral status at discharge: A&Ox4 Functional status at discharge: uses cane/walker Overall status at discharge: patient is progressing back to baseline Time Spent with Patient Less than 30 minutes Exam Vital Signs (past 8 hours): - 04/11/18 04:24 Temperature 98.4 F Pulse Rate 75 Respiratory Rate 15 Blood Pressure 123/95 H Pulse Oximetry 99 Oxygen Delivery Method Room Air Oxygen Flow Rate 0 Narrative Exam Narrative: WDWN NAD A&Ox3. Left hip dressing CDI, NVI in surgical extremity. Calf is soft and compressible. Objective Labs Result Diagrams: 04/09/18 06:09 Discharge Plan Discharge Plan Patient Disposition: SNF Transfer to: [facility] Under care of provider: Dr. Maribel Yanes I certify the postop hospital custodial care is medically necessary on a continuing basis for any conditions for which he/ she received care during this hospitalization.: Yes The receiving facility has agreed to accept transfer and provide medical treatment.: Yes Discharge Med Rec/Prescriptions Prescriptions: New acetaminophen 325 mg Tablet 975 mg PO TID Qty: 0 RF: 0 polyethylene glycol 3350 17 gram Powder In Packet 17 gm PO DAILY PRN (Reason: Constipation) Qty: 0 RF: 0 aspirin 81 mg Tablet,Delayed Release (Dr/Ec) 81 mg PO BID Qty: 0 RF: 0 docusate sodium 100 mg Capsule 100 mg PO BID Qty: 0 RF: 0 ibuprofen 600 mg Tablet 600 mg PO Q6HR PRN (Reason: Pain, Mild (1-3)) Qty: 0 RF: 0 oxycodone 5 mg Tablet 5 mg PO Q4H PRN (Reason: Pain, Moderate (4-6)) 3 Days Qty: 18 RF: 0 hydroxyzine pamoate 25 mg Capsule 25 mg PO Q6HR PRN (Reason: muscle spasms) Qty: 0 RF: 0 Continue levothyroxine 125 mcg Tablet 125 mcg PO DAILY RF: 0 Discontinued ibuprofen 200 mg PO DAILY RF: 0 sulfamethoxazole-trimethoprim [Bactrim DS] 800-160 mg Tablet 1 tab PO BID RF: 0 polyethylene glycol 3350 [Miralax] 17 gram Powder In Packet 17 g PO DAILY RF: 0 Discharge Health Status Precautions: [place] Provider Discharge Instructions Diet: Diet as Tolerated Activity: WBAT, follow posterior hip precautions, use rolling walker until cleared by PT to progress to cane. Cold/Heat Therapy: Apply ice to surgical site for 20 minutes at a time at least hourly while awake. Skin/Wound/Dressing Care Report to your healthcare provider any signs of infection, such as:: chills, fever, night sweats, increased pain and unusual drainage Dressing: Keep dressing on, clean, dry, and intact. Will remove in the office at her second post-op appointment. [facility] Reason for rehabilitation: Post-operative therapy Rehab type: Physical therapy and Occupational therapy Visit Report/Discharge Packet Instructions: DI for Hip Replacement Discharge Data Primary Care Provider: Maribel Yanes Attending Provider: Kait Peace Admit Date/Time: 04/08/18 06:32
[2018-04-11 07:30] VITALS: BP 106/66; PULSE 73; RESP 16; TEMP 36.8; O2SAT 96
[2018-04-11] MEDS: POLYETHYLENE GLYCOL 3350 17 GM POWD.PACK PO (08:21)
[2018-04-11] MEDS: DOCUSATE 100 MG CAPSULE PO (08:23)
[2018-04-11] MEDS: ACETAMINOPHEN 325 MG TABLET 975 MG PO (08:23)
[2018-04-11] MEDS: ASPIRIN EC 81 MG TABLET PO (08:24)
[2018-04-11] MEDS: SULFA/TRIMETH 800/160 (DS) TABLET 1 TAB PO (08:25)
--- NOTE | 2018-04-11 11:37 | PC.NURSE ---
Addendum entered by Jaci Downs R.N. 04/11/18 14:36: DC - belongings gathered, including black suitcase, clothing, OT supplies, phone and battery recharger, glasses, own fww,packet provided to cabilia, report called to Bernice at [facility]. Original Note: AM NOTE - alert, states pain 2 on scale 0/10 while lying bed, incr with mobilization and at times has spasm l leg, discussed pain medications and declines narcotic at this time, did admin tylenol with breakfast and discussed addl non narcotic meds with pt and will admin prior to leaving today for [facility], eleazar dsg r hip cdi, discussed constipation and narcotics, did agree to stool softener and miralax this am, declines any addl laxatives at this time.
[2018-04-11] MEDS: IBUPROFEN 600 MG TABLET PO (13:07)
[2018-04-11 13:30] VITALS: BP 108/67; PULSE 74; RESP 14; TEMP 36.8; O2SAT 95
--- NOTE | 2018-04-11 15:26 | CM.DPC ---
DCP Cont: Spoke w/pt yesterday and today. Notified her that [facility] did not have beds available, provided Medicare SNF choice list and pt requested [facility] her b[facility]u choice. Provided referral to [facility] yesterday and they accepted for admission today. Pt remained aware and agreeable to this plan today and she notified her dtr of changes. Cabulance p/u was arranged my Charisse at [facility] today for 1400, RN and pt made aware. PASSR, Completed DC ppk and signed med list were faxed to [facility] by commercial lease administrator Casey. P: [facility] to [facility] today. Discharge Planning/Care Management CM Discharge Assessment Start: 04/09/18 08:04 Freq: Status: Discharge Protocol: Document 04/09/18 08:04 KJS (Rec: 04/09/18 08:11 KJ [id number]) Discharge Planning Assessment Assigned Nozzle Tender ROGERS Winston Contact Information Genaro Melissa (daughter) Advance Directives? Yes Advance Directives on File No History Provided By Patient Family Member Has Patient been admitted in last 30 No days? Prior Living Arrangements RV Household Members none Independent with ADL's Yes Is patient alert and oriented? Yes Caregiver for Another No Patient/Family Preference Correction Facility Barriers to Discharge No Discharge Plan Correction Facility Referrals Initiated Correction If patient plan is SNF: Has PASSR been No completed? Medicare Choice List Provided Yes SNF/HH Preference [facility] Has Agency SNF been contacted Yes Comment Provided referral to [facility] on Whiteboard Updated in Patient Room with Yes name and ext. # of Nozzle Tender Comment Received verbal referral from Dr. Peace re: d/c planning. Dr Vijay Peace performed ORLY yesterday and reports that patient will need SNF at time of d/c. Primary payor is 1) Medicare 2)[facility]. PCP is Dr. Yanes. Met briefly with patient and daughter/Adie at bedside on per Dr. Peace's request. Patient receiving therapy session at time of visit. Patient reports that she [place] and does not believe that she will be able to return at time of d/c. Daughter confirms. Provided patient and daughter with Medicare SNF list and first choice is [facility]. Placed call to [facility] and referral provided. They will review for admit. Dr. Peace updated. Review Status In Process Please Provide Date Initial DC 04/08/18 Assessment Was Performed Next Review Type Continued Stay Review
== END 2018-04-11 14:20 | DRG 470 ==
PROVIDERS: Admitting Provider Orthopaedic Surgery; PCP Internal Medicine; Visit Provider Orthopaedic Surgery
PROC: 0SRB0JZ Replacement of Left Hip Joint with Synthetic Substitute, Open Approach (ICD-10-PCS; CPT 27130; principal; 2018-04-08 07:45)
DX: M16.12 Unilateral primary osteoarthritis, left hip (principal); E03.9 Hypothyroidism, unspecified; C50.919 Malignant neoplasm of unspecified site of unspecified female breast; R11.0 Nausea
CPT/HCPCS: 36415; 72170; 73502; 85014; 85018; 90471; 90656; 97116; 97162; 97165; 97530; 97535; C1776; C9290; J0171; J0690; J1100; J2250; J2274; J2405; J2704; J3010; J3370; Q2038

== ENCOUNTER → 2021-05-10 10:29 | Outpatient (CLI) | payer MEDICARE, SELFPAY ==
[2021-03-14 09:55] VITALS: BMI 34.3
[2021-05-10 19:12] LABS: Free T4, Direct Thyroxine 1.79 ng/dL (0.78-2.19)
[2021-05-10 19:26] LABS: Thyroid Stimulating Hormone 0.084 uIU/mL (0.47-4.68)
[2021-05-11 16:17] LABS: Triiodothyronine T3 Total 119 ng/dL (71-180)
== END ==
PROVIDERS: PCP Family Medicine; Visit Provider Family Medicine
DX: E07.9 Disorder of thyroid, unspecified (principal)
CPT/HCPCS: 84439; 84443; 84480

== ENCOUNTER → 2021-06-15 13:00 | Outpatient (CLI) | payer MEDICARE, SELFPAY ==
[2021-03-14 09:55] VITALS: BMI 34.3
[2021-06-15 19:25] LABS: Free T3, Triiodothyronine Free 2.83 pg/mL (2.77-5.27)
[2021-06-15 19:39] LABS: TSH w/ Reflex to FT4 4.15 uIU/mL (0.47-4.68)
== END ==
PROVIDERS: PCP Family Medicine; Visit Provider Family Medicine
DX: E07.9 Disorder of thyroid, unspecified (principal)
CPT/HCPCS: 84443; 84481

== ENCOUNTER → 2022-01-30 09:33 | Outpatient (CLI) | payer MEDICARE, SELFPAY ==
[2021-03-14 09:55] VITALS: BMI 34.3
[2022-01-30 20:43] LABS: Hemoglobin A1C% w Est Avg Glu 4.7 % (4.0-6.0)
[2022-01-30 20:45] LABS: Hematocrit 42.6 % (36-46); Hemoglobin 14.3 g/dL (12.0-16.0); Mean Corpuscular HGB Conc 33.6 % (30-36); Mean Corpuscular Volume 92.2 fL (80-100); Platelet Count 214 X10^3/uL (150-400); Red Blood Cell Count 4.63 X10^6/uL (4.0-5.2); Red Cell Distribution Width 14.1 % (11.6-14.8); White Blood Cell Count 6.9 X10^3/uL (4.5-11.0)
[2022-01-30 20:47] LABS: Alanine Aminotransferase 17 IU/L (<35); Albumin 3.6 g/dL (3.5-5.0); Albumin Globulin Ratio 1.4 (1.0-2.8); Alkaline Phosphatase 77 U/L (38-126); Aspartate Aminotransferase 31 IU/L (14-36); BUN Creatinine Ratio 24.7 (6-22); Bilirubin Total 0.6 mg/dL (0.2-1.3); Blood Urea Nitrogen 18 mg/dL (7-17); Carbon Dioxide 26 mmol/L (22-32); Chloride 106 mmol/L (98-107); Cholesterol 188 mg/dL (140-199); Estimated Glomerular Filt Rate > 60 mL/min (>60); Globulin 2.5 g/dL (1.7-4.1); Glucose 91 mg/dL (80-110); HDL Cholesterol 56 mg/dL (40-60); HEMOLYSIS 29 (0-50); LDL Cholesterol Calculated 118 mg/dL (<100); Potassium 4.8 mmol/L (3.4-5.1); Sodium 138 mmol/L (137-145); Total Protein 6.1 g/dL (6.3-8.2); Triglycerides 69 mg/dL (35-150)
[2022-01-30 20:48] LABS: Add Manual Diff / Slide Review YES
[2022-01-30 20:57] LABS: Free T4, Direct Thyroxine 1.31 ng/dL (0.78-2.19)
[2022-01-30 21:11] LABS: TSH w/ Reflex to FT4 0.15 uIU/mL (0.47-4.68)
[2022-01-30 21:37] LABS: Neutrophils Absolute Manual 4554 /uL (3000-5900); RBC Morphology Normal Morphology; Total Cells Counted 100
== END ==
PROVIDERS: PCP Physician Assistant; Visit Provider Physician Assistant
DX: D64.9 Anemia, unspecified (principal); F10.20 Alcohol dependence, uncomplicated; E07.9 Disorder of thyroid, unspecified; Z96.649 Presence of unspecified artificial hip joint; Z13.1 Encounter for screening for diabetes mellitus
CPT/HCPCS: 80053; 80061; 83036; 84439; 84443; 85007; 85025

== ENCOUNTER → 2022-06-12 14:00 | Outpatient (CLI) | payer MEDICARE, SELFPAY ==
[2021-03-14 09:55] VITALS: BMI 34.3
[2022-06-12 20:07] LABS: Free T4, Direct Thyroxine 0.89 ng/dL (0.78-2.19)
[2022-06-12 20:21] LABS: TSH w/ Reflex to FT4 4.02 uIU/mL (0.47-4.68)
== END ==
PROVIDERS: PCP Physician Assistant; Visit Provider Physician Assistant
DX: E07.9 Disorder of thyroid, unspecified (principal)
CPT/HCPCS: 84439; 84443

== ENCOUNTER 2022-07-25 12:43 | Day surgery (SDC) | payer MEDICARE, SELFPAY ==
[2021-03-14 09:55] VITALS: BMI 34.3
--- NOTE | 2022-07-25 | PATH_ITS ---
[facility] Accession Number: [id number] No. of containers..01 Tissue . 01 Material submitted: . colon - ASCENDING COLON POLYP . 01 Diagnosis: Ascending Colon, Polyp, Biopsy: Benign lymphoid aggregate. Additional levels were examined. Negative for dysplasia and malignancy. MRV 07/30/2022 1244 Local . 01 Electronically signed: . Adrianna Thompson MD, Pathologist NPI- [id number] . 01 Gross description: . ASCENDING COLON POLYP: Received in formalin is 1 fragment(s) of ward, soft tissue measuring 0.5 x 0.2 x 0.1 cm submitted entirely in 1 cassette(s) /CPE 07/26/2022 0623 Local . 01 Pathologist provided ICD-10: K63.5 . 01 CPT . 480567 Specimen Comment: A courtesy copy of this report has been sent to [facility] Pathology Performed at: 01 [facility] [address] [place] [address], [place], [place] [id number] MD Caleb Ponce MD Phone: [phone]
[2022-07-25 13:06] VITALS: BMI 34.5
--- NOTE | 2022-07-25 13:28 | PM.PREOP ---
Pre-operative Note COVID-19 COVID-19 status: Negative Interval Note History & Physical reviewed/Exam performed by Physician: Yes Changes to H&P: No ASA Class (for procedural sedation): II
--- NOTE | 2022-07-25 13:28 | PM.OP.EC ---
Operative Date/Time/Diagnoses Date of procedure: 07/25/22 Pre-op diagnosis: See indication and findings Procedure & Clinicians Study performed: EGD and colonoscopy Indications: Suprasternal notch dysphagia and personal history of colon polyps Surgeon: Ari Zimmerman Procedure Notes Procedure in detail: After informed consent was obtained the patient was placed in the left lateral decubitus position. The video upper scope was placed into the oropharynx and with the patient's help swallowed into the esophagus. The esophagus stomach and duodenum were carefully examined. On withdrawal retroflexed view the GE junction was performed. The scope was removed. The patient tolerated procedure well. The patient was then turned this colonoscope substituted and this was introduced in the rectum easily passed the cecum. Preparation was good. On slow withdrawal mucosa was carefully examined. The scope was removed. The patient tolerated the procedure well. Blood loss none Complications none Medications propofol Findings EGD 1. Normal esophagus. No Schatzki's ring present. 2. Completely normal stomach 3. Normal duodenal bulb and sweep Colonoscopy 1. Diminutive polyp in the ascending colon Jumbo biopsy removed completely 2. Scattered sigmoid diverticulosis, mild 3. Otherwise negative colonoscopy to cecum though was fairly tortuous Patient should have follow-up colonoscopy in 7-8 years at age 79. She can follow up with Dr. Douglas in the office to discuss her difficulty swallowing the nothing was evident on this exam.
[2022-07-25 13:32] VITALS: BP 135/85; PULSE 69; RESP 18; TEMP 36.7; O2SAT 97
[2022-07-25] MEDS: LACTATED RINGERS 1,000 ML 42 ML IV (13:34)
[2022-07-25 14:17] LABS: COVID19 -Nasal RAPID Negative (Negative)
[2022-07-25 14:56] VITALS: BP 139/74; PULSE 82; RESP 17; TEMP 36.1; O2SAT 97
[2022-07-25 15:01] VITALS: BP 134/94; PULSE 76; RESP 17; O2SAT 98
[2022-07-25 15:05] VITALS: BP 152/97; PULSE 68; RESP 15; TEMP 36; O2SAT 96
--- NOTE | 2022-07-25 15:08 | SUR.PHASEII ---
Patient reported tingling lips that is improving. Second Grade Teacher equal, smile and tongue even.
[2022-07-25 15:10] VITALS: BP 143/91; PULSE 84; RESP 16; O2SAT 98
== END 2022-07-25 15:30 | disposition home or self-care (01) ==
PROVIDERS: PCP Physician Assistant; Referring Provider Internal Medicine Gastroenterology; Visit Provider Internal Medicine Gastroenterology
PROC: 0DJ08ZZ Inspection of Upper Intestinal Tract, Via Natural or Artificial Opening Endoscopic (ICD-10-PCS; CPT 43235; principal; 2022-07-25 13:30)
PROC: 0DJD8ZZ Inspection of Lower Intestinal Tract, Via Natural or Artificial Opening Endoscopic (ICD-10-PCS; CPT 45378; 2022-07-25 13:30)
DX: Z12.11 Encounter for screening for malignant neoplasm of colon (principal); Z86.010 Personal history of colon polyps; R13.10 Dysphagia, unspecified; K21.9 Gastro-esophageal reflux disease without esophagitis; Z20.822 Contact with and (suspected) exposure to COVID-19; K57.30 Diverticulosis of large intestine without perforation or abscess without bleeding
CPT/HCPCS: 45380; 43235; 87635; 93005; 93010; C9803; J2704

== ENCOUNTER → 2022-08-29 09:10 | Outpatient (CLI) | payer MEDICARE, SELFPAY ==
[2021-03-14 09:55] VITALS: BMI 34.3
[2022-08-29 10:11] LABS: Appearance Urine UA SL CLOUDY; Bilirubin Urine UA NEGATIVE (NEGATIVE); Color Urine UA YELLOW; Glucose Urine UA NEGATIVE (Negative); Ketones Urine UA NEGATIVE (NEGATIVE); Leukocyte Esterase Urine UA NEGATIVE (NEGATIVE); Nitrite Urine UA NEGATIVE (Negative); Occult Blood Urine UA 1+ (Negative); Protein Urine UA NEGATIVE (Negative); Specific Gravity Urine UA 1.025 (1.000-1.035); Urobilinogen Urine UA 0.2 E.U./dL (0.2)
[2022-08-29 10:22] LABS: Bacteria Urine None Seen; Culture Indicated Urine Cult Not Indicated; RBC Urine 0-1/HPF (0-5/HPF); Squamous Epithelial Cell Urine 5-10 /HPF (0-5/HPF); WBC Urine 1-5/HPF (0-5/HPF)
[2022-08-29 11:13] LABS: Add Manual Diff / Slide Review NO; Basophils Absolute Auto 0 /uL (0-100); Basophils Percent Auto 0.5 % (0-2); Eosinophils Absolute Auto 100 /uL (0-450); Eosinophils Percent Auto 1.8 % (2-4); Hematocrit 40.5 % (36-46); Hemoglobin 13.9 g/dL (12.0-16.0); Lymphocytes Absolute Auto 2000 /uL (1100-4500); Lymphocytes Percent Auto 38.3 % (25-40); Mean Corpuscular HGB Conc 34.2 % (30-36); Mean Corpuscular Hemoglobin 31.8 PG (26-34); Mean Corpuscular Volume 92.9 fL (80-100); Monocytes Absolute Auto 400 /uL (0-900); Monocytes Percent Auto 7.3 % (3-14); Neutrophils Absolute Auto 2700 /uL (1500-7000); Neutrophils Percent Auto 52.1 % (50-75); Platelet Count 210 X10^3/uL (150-400); Red Blood Cell Count 4.35 X10^6/uL (4.0-5.2); Red Cell Distribution Width 13.2 % (11.6-14.8); White Blood Cell Count 5.2 X10^3/uL (4.5-11.0)
[2022-08-29 11:46] LABS: BUN Creatinine Ratio 27.9 (6-22); Blood Urea Nitrogen 19 mg/dL (7-17); Calcium 9.1 mg/dL (8.4-10.2); Carbon Dioxide 26 mmol/L (22-32); Chloride 104 mmol/L (98-107); Estimated Glomerular Filt Rate > 60 mL/min (>60); Glucose 79 mg/dL (80-110); HEMOLYSIS < 15 (0-50); Potassium 4.1 mmol/L (3.4-5.1); Sodium 137 mmol/L (137-145)
== END ==
PROVIDERS: PCP Physician Assistant; Referring Provider Orthopaedic Surgery; Visit Provider Orthopaedic Surgery
DX: R73.9 Hyperglycemia, unspecified (principal); Z01.812 Encounter for preprocedural laboratory examination; N39.0 Urinary tract infection, site not specified
CPT/HCPCS: 36415; 80048; 81001; 83036; 85025

== ENCOUNTER 2022-09-18 08:37 | Day surgery (SDC) | payer MEDICARE, SELFPAY ==
[2021-03-14 09:55] VITALS: BMI 34.3
[2022-09-11 08:30] VITALS: BMI 33.1
[2022-09-18] VITALS (13 sets, daily range): BP systolic 90–152; BP diastolic 63–87; PULSE 57–84; RESP 12–24; TEMP 35.9–36.9; O2SAT 95–100; BMI 33.1
--- NOTE | 2022-09-18 06:00 | DI.RAD.S_ITS ---
PROCEDURE: XR PELVIS 1-2V INDICATIONS: right ORLY TECHNIQUE: Intra-operative view of the pelvis. COMPARISON: [facility], CR, XR PELVIS WITH LATERAL HIP LEFT, 04/21/2018, 13:25. [facility], CR, XR HIP W PEL IF DONE RT 2V, 09/18/2022, 12:35. [facility], CR, XR PELVIS WITH LATERAL HIP RIGHT, 05/25/2022, 10:55. FINDINGS: Bones: Intraoperative devices prior to placement of arthroplasty prostheses are in expected positions. No fractures or suspicious bony lesions. Soft tissues: Overlying surgical retractors are present, along with other intraoperative changes. IMPRESSION: Intraoperative device in expected position. Dictated by: Zach Bonilla M.D. on 09/18/2022 at 14:31 Approved by: Zach Bonilla M.D. on 09/18/2022 at 14:32
[2022-09-18] MEDS: CELECOXIB 200 MG CAPSULE PO (09:07)
[2022-09-18] MEDS: ACETAMINOPHEN 325 MG TABLET 975 MG PO (09:07)
[2022-09-18] MEDS: LACTATED RINGERS 1,000 ML 42 ML IV (09:15)
[2022-09-18] MEDS: VANCOMYCIN 1,000 MG/200 ML PIGGYBACK 200 MG IV (09:48)
[2022-09-18 09:49] LABS: COVID19 - ADMIT (NP swab/PCR) Negative (Negative)
--- NOTE | 2022-09-18 10:05 | PM.PREOP ---
Pre-operative Note Interval Note History & Physical reviewed/Exam performed by Physician: Yes Changes to H&P: No
--- NOTE | 2022-09-18 10:05 | PM.OP.1 ---
Operative Date/Time/Diagnoses Date of procedure: 09/18/22 Time of procedure: 11:20 Pre-op diagnosis: Right hip osteoarthritis Post-op diagnosis: same Procedure & Clinicians Procedure: Right total hip arthroplasty, posterior approach Same procedure as scheduled: Yes Indications: The patient has had progressively worsening right hip pain with radiographic changes consistent with arthritis. Non-operative management has failed and the patient has requested total hip replacement. The risks, benefits and alternatives to surgery were discussed with the patient prior to proceeding. Risks discussed included, but were not limited to, failure to relieve pain, leg length discrepancy, dislocation, stiffness, infection, nerve damage, deep venous thrombosis, pulmonary embolism, stroke, coma, heart attack, permanent paralysis and , as well as the potential need for eventual revision of the prosthetic. Surgeon: Kait Peace Jboss Architect: Carlin Stack Anesthesia Type: General Operative Notes Findings: Severe right hip osteoarthritis, adequate stability Closure Type: primary Specimen(s): none sent Prosthetic devices, grafts, tissues, transplants, or devices: Peace and nephew anthology 4 femur standard offset, one 6.5 mm screw, neutral poly liner, 46 mm R3, 28 by +0 oxinium Estimated Blood Loss (mL): 250 Blood products transfused: none Procedure in detail: The patient was seen in the pre-operative area, where the patient identified the right hip as the operative site and this was marked with my initials. The patient received pre-operative antibiotics and was taken to the operating room and placed on the operative table in the left lateral decubitus position after satisfactory anesthesia. A time clock inspector out was performed. The right leg was prepared from the ankle to the iliac crest with ChloroPrep in the usual fashion and draped through sterile drapes. The hip was approached through an approximately 20 cm incision centered over the greater trochanter and curving gently posteriorly as it went proximally. This was carried sharply to the fascia zahra, which was divided and retracted with a self retaining retractor. The trochanteric bursa was excised with care being taken to avoid the sciatic nerve, which was identified and protected throughout the case. The short external rotators were incised and the capsulomuscular flap was raised and tagged for later repair. The hip was dislocated, and a femoral neck osteotomy performed approximately 15 mm above the lesser trochanter. Retractors were placed around the femur. The canal was opened with a box cutting osteotome, followed by a T handled reamer and a lateralizing reamer. The chili pepper broach was then used, followed by sequential broaching until there was good stability of the broach in the femur. Retractors were placed to expose the acetabulum. The labrum and central soft tissues were removed. Reaming was performed initially going up in 2 mm increments, then 1 mm increments until good bite was obtained with an odd sized reamer. The cup 1 mm larger than the last reamer was then inserted using the appropriate anteversion guides. It was further stabilized with a single screw. A trial neutral liner was placed. The broach was placed in the canal. A trial head and neck were then placed and the hip relocated and checked for leg length and stability. An intraoperative film confirmed the component position and no evidence of fracture. The patient was stable in the position of sleep, of squatting, and could be put through a range of motion with 45 degrees internal rotation without dislocation. At 90 degrees flexion, internal rotation to 70? was possible before dislocation. This was felt to be satisfactory and the appropriate components were opened, and the trials were removed. The acetabular liner was impacted into position. The final stem was then impacted into the prepared femoral canal. A brief Betadine soak was performed while trialing with head options. The hip was meticulously irrigated with normal saline. Finally the femoral head was impacted onto the stem. The acetabulum was cleared of all material and the hip relocated one final time. The capsulomuscular flap was then repaired to the greater trochanter though an awl hole using the tag sutures. The short external rotators were repaired with a nonabsorbable suture. A deep drain was placed and brought out anteriorly. The fascia zahra was closed with Vicryl. The subcutaneous layer was closed with barbed sutures and susanne. A digna dressing was applied and the patient was taken to recovery having tolerated the procedure well. Complications: none Post-operative Condition: stable Disposition: Acute Care Plan for aftercare: The patient will be maintained on a standard total hip replacement protocol with weight bearing as tolerated and posterior hip precautions. The patient will receive Aspirin and sequential compression devices for DVT prophylaxis. The patient will be discharged home when safe for the home environment.
[2022-09-18] MEDS: CEFAZOLIN 2 GM/100 ML PREMIX 100 ML IV ×2 (11:00→19:09)
[2022-09-18] MEDS: TRANEXAMIC ACID 1,000 MG VIAL 2000 MG INJ ×2 (11:10→12:09)
[2022-09-18] MEDS: SODIUM CHLORIDE IRRIG SOLUTION 250 ML, POVIDONE-IODINE SPONGE STICKS 1 APPLIC IRR (11:26)
--- NOTE | 2022-09-18 11:31 | SUR.OPER ---
Lateral on padded OR bed. Gel axillary roll. Arms secured on padded armboard with pillow supporting top arm. Gel pad under left arm. Padded hip positioner braces x4 - anterior and posterior chest and pelvis. Additional gel pad used anterior pelvis. Gel pad under bottom leg from knee to foot and secured with tape over sheet.
[2022-09-18] MEDS: BUPIVACAINE LIPOSOME 266 MG/20 ML VIAL INJ (11:56)
[2022-09-18] MEDS: BUPIVACAINE 0.25% (PF) 60 ML, EPINEPHrine 0.3 MG INJ (11:57)
--- NOTE | 2022-09-18 13:00 | DI.RAD.S_ITS ---
PROCEDURE: XR HIP W PEL IF DONE RT 2V INDICATIONS: RIGHT TOTAL HIP TECHNIQUE: 2 view(s) of the hip acquired. COMPARISON: [facility], NIR, XR HIP W PEL IF DONE LT 2V, 04/08/2018, 10:21. FINDINGS: Bones: Patient is status post bilateral hip arthroplasty, with hardware components in expected positions. The hip joint appears congruent. The visualized bony structures appear intact. Soft tissues: Overlying postoperative changes are noted. No suspicious soft tissue densities. IMPRESSION: Interval right hip arthroplasty placement, without hardware complication. Dictated by: Anthony Martines M.D. on 09/18/2022 at 13:41 Approved by: Anthony Martines M.D. on 09/18/2022 at 13:41
--- NOTE | 2022-09-18 13:00 | SUR.PHASEI ---
Report called to Sri. Patient transferred to the floor by Bryon with her belongings bag.
--- NOTE | 2022-09-18 13:48 | PC.NURSE ---
Addendum entered by Sri Hugo R.N. 09/18/22 15:04: Patient states pain is 4/10. Given 1 oxycodone for discomfort and helpful to patient. Original Note: Assess- Patient is alert and oriented x4, r.hip dressing with digna drain, green light flashing on motor. She has feeling to her shins. PPx2. Patient had a posterior hip replacement. She is visiting with her daughter.
[2022-09-18] MEDS: OXYCODONE IR 5 MG TABLET PO ×2 (14:03→18:16)
[2022-09-18] MEDS: LACTATED RINGERS 1,000 ML 125 ML IV ×2 (14:04→22:56)
--- NOTE | 2022-09-18 17:42 | PT.IIE ---
Current Diagnoses Unilateral primary osteoarthritis, left hip (09/18/22) Surgery Performed Operation Date: 09/18/22 10:45 Actual Procedures p Total Hip Arthroplasty(Right) - Kait Peace MD Surgical History (Last Updated 02/05/22 @ 21:14 by Meaghan Waller) Anesthesia H/O rotator cuff surgery (~07/1994) History of ankle surgery History of cholecystectomy (~08/2000) History of hip replacement (~2017) History of hysterectomy (~11/2004) History of lumpectomy of left breast (~2015) History of tonsillectomy Status post rotator cuff repair Medical History (Last Updated 02/05/22 @ 21:14 by Meaghan Waller) [place] (actinic keratosis) (~2011) Alcohol abuse Alcohol abuse, uncomplicated Breast cancer (~2014) Chronic cough (~2004) Difficulty sleeping Fibroids Gastric reflux (~1999) Sekou's thyroiditis Hip pain History of shingles Hypothyroidism, unspecified (~1994) Invasive ductal carcinoma of left breast (~2015) Joint pain (~2004) Lipid screening Macular degeneration (~2014) Major depressive disorder, recurrent, moderate Mumps (~1955) Obesity Osteoarthritis of left hip Osteopenia Other specified disorders of bone density and structure, unspecified site Postmenopausal Primary localized osteoarthrosis of pelvic region Right knee DJD Routine general medical examination at health care facility Scar Tear of meniscus of left knee Vision disorder Physical Therapy Inpatient Evaluation/Re-Eval M1 PT/OT-IP Prior Functional Status Start: 09/18/22 17:12 Freq: NEEDED Status: Active Protocol: Document 09/18/22 16:08 DCW (Rec: 09/18/22 17:42 DCW [id number]) Medical Review Prior Functional Status Medical History Reviewed Yes Mobility and Gait When I'm feeling good, I walk without my walker. When I don 't feel good, I don't really walk, because I can't really get my walker down my steps. Prior Functional Level (Other details) Pt lives on [facility] in a walk-up single story, 16 stairs to enter. Pt reports she lives alone with minimal assistance available. Daughter has her own health issues, which makes it difficult to rely on her, and her closest friends are ~26 minutes away. Social History Household Members none Living Arrangements Apartment/Condo Number of Floors (Floors) One Floor Number of Stairs To Enter/Railing? 16 SONAM Home Equipment Four Wheel Walker M2 PT-IP Current Condition Start: 09/18/22 17:12 Freq: NEEDED Status: Active Protocol: Document 09/18/22 16:08 DCW (Rec: 09/18/22 17:42 DC [id number]) Physical Therapy Current Condition Current Condition Evaluation Date 09/18/22 Treatment Diagnosis R ORLY Onset Date 09/18/22 M3 PT-IP Subjective Start: 09/18/22 17:12 Freq: NEEDED Status: Active Protocol: Document 09/18/22 16:08 DCW (Rec: 09/18/22 17:42 [facility] [id number]) Subjective Physical Therapy Visit Type Type Initial Evaluation Visit Start Time 16:08 Visit Stop Time 16:39 Total Visit Minutes 31 Notes Pt sitting in recliner day-of- surgery following right posterior-approach ORLY. Admits she has trouble understanding her hip precautions. Very worried about her 16 stairs to enter her apartment. Is wondering how bad it would be if she just gets all the rehab information now, and then I go home, get myself into my apartment, and then just stay there and do my rehab myself until I'm doing well enough to come out. Number of DIE REPAIRER TRIMMER DIES Visits 0 Physical Therapy Visit Comments Patient Comments The incision actually feels good. The socket...not so much . It makes me want to cry, but I just don't have any tears. Patient Goals Return home Therapy Pain Assessment Pain Present Pain Present Pain Reported Location Left Hip Intensity 7 Scale Used Numeric (0 - 10) Pain Management Techniques Apply Cold,Re-positioning M4 PT-IP Mobility and Gait Start: 09/18/22 17:12 Freq: NEEDED Status: Active Protocol: Document 09/18/22 16:08 DCW (Rec: 09/18/22 17:42 [facility] [id number]) PT-Bed Mobility Assessment Rolling Type of Rolling Roll to Left Level of Assist Minimal Assistance Sit to Supine Sit to Supine Minimal Assistance Scooting Scooting to Edge of Bed Minimal Assistance PT-Transfer Assessment Sit to and From Stand Sit to and from Stand Minimal Assistance,1 Person Assistance,Use of Upper Extremities Equipment Transfer Assistive Device Gait Belt,4 Wheeled Walker Transfers Transfer Destination Bed Transfer Ability Level of Assist Contact Guard Assistance Comments Mobility Comments Verbal cues for straightening out right leg to limit hip flexion. After walk, pt most concerned about getting right leg into bed without breaking hip precautions, talked pt through techniques to help lift leg into bed, pt liked use of belt to assist right leg, although did not hip pain when trying to spin legs into bed. Able to perform while maintaining hip precautions. Gait Assessment Gait Gait Assistance Required: Standby Assistance Distance (Feet) 90 Able to Maintain Weight Bearing Status Yes During Gait Assistive Devices Assistive Device Gait Belt,4 Wheeled Walker Orthotic/Prosthetic Devices or Brace: No Gait Deviations General Gait Pattern Antalgic,Decreased Stride Length,Flexed Trunk Factors Limiting Gait Function Factors Limiting Gait Function Decreased Activity Tolerance, Decreased Strength,Pain,Poor Balance Comments Gait Comments Pt ambulated out into hallway 90' using 4WW, therapist assisted for line management. Stair Climbing Assessment Comments Stair Climbing Comments Pt too fatigued M5 PT-IP Objective Assessments Start: 09/18/22 17:12 Freq: NEEDED Status: Active Protocol: Document 09/18/22 16:08 DCW (Rec: 09/18/22 17:42 [facility] [id number]) Orientation Orientation/Cognition Level of Alertness Alert Orientation Name,Birthday,Date,Place, Situation Language Function Ability No Deficits Noted Safety Awareness Understands Safety Issues Memory Description No Deficits Noted Gross Range of Motion Lower Extremity ROM Assessment Right Impaired Impairments Restricted due to posterior hip precautions Strength Lower Extremity Strength Assessment Right Impaired M6 PT-IP Treatment Start: 09/18/22 17:12 Freq: NEEDED Status: Active Protocol: Document 09/18/22 16:08 DCW (Rec: 09/18/22 17:42 [facility] [id number]) Physical Therapy Treatment Exercises Exercises Ankle Pumps,Gluteal Sets,Quad Sets,Heel Slides,Supine Hip Abduction Education Education Provided Precautions,Post-Op Packet M7 PT-IP Assessment and Plan Start: 09/18/22 17:12 Freq: NEEDED Status: Active Protocol: Document 09/18/22 16:08 DCW (Rec: 09/18/22 17:42 [facility] [id number]) PT Summary Assessment and Plan Potential Rehabilitation Potential Good Status of Condition at Evaluation Stable Summary Impairments Pain,ROM,Strength,Balance,Bed Mobility,Transfers,Gait, Activity Tolerance Assessment Summary Pt presents on [id number] right posterior-approach ORLY. After review, pt able to repeat back hip precautions. Biggest limiting factor in pt returning home is her 16 stairs to enter her home with minimal assistance, in addition to her difficulty getting her 4WW up and down the stairs. If pt does well enough that she can ascend stairs into apartment, and then get home health PT, then may be appropriate to return home upon discharge, however if not, pt will likely require SNF stay until she can regularly ascend/descend her steps safely. Noted appropriate understanding of safety concerns and post-op HEP. Did well today with ambulation, tolerated 90' out in hallway SBA /c 4WW. Goals Bed Mobility Goal Independent Transfer Goal Independent Gait Goal Independent,Four Wheel Walker Gait Distance 200 Other Goals Ascend/descend 16 steps SBA /c railing Days to Meet Goals 3 Frequency of Treatment Frequency Of Treatment Twice a Day Treatment Plan Physical Therapy Treatment Plan Bed Mobility Training,Transfer Training,Gait Training, Therapeutic Exercise,Post Op Education,Discharge Planning Precautions Posterior Hip Precautions No Hip Flexion > 90 degrees,No Hip Internal Rotation,No Hip Adduction Recommendations To Nursing Amount of Assist Needed Standby Assistance,1 Person Assist Discharge Recommendations PT Discharge Recommendations Home Health,Home vs SNF Transportation Needs at Discharge Private Vehicle
[2022-09-18] MEDS: IBUPROFEN 400 MG TABLET PO ×2 (18:15→23:51)
[2022-09-18] MEDS: ACETAMINOPHEN 325 MG TABLET 650 MG PO ×2 (18:16→23:51)
[2022-09-18] MEDS: DOCUSATE 100 MG CAPSULE PO (20:23)
[2022-09-18] MEDS: VIT C/E/ZN/COPPR/LUTEIN/ZEAXAN CAPSULE 1 CAP PO (20:23)
[2022-09-18] MEDS: ASPIRIN EC 81 MG TABLET PO (20:23)
--- NOTE | 2022-09-19 00:14 | PC.NURSE ---
Patient is alert and oriented. Breath sounds CTA with RA sat of 97%. HRR. Denies nausea. BT present and abdomen is soft but has not yet passed flatus. Is voiding without difficulty and denies dysuria. Able to move self in bed. Up to BSC with walker and 1 assist; gait not assessed. HARPAL dressing to right hip is intact and functioning; no drainage noted. Has puffiness in bilateral LE/feet left > right which she states is normal for her. Denies pain at this time. CMS is intact to light touch; does have some limitation with lifting leg off bed. Wearing bilateral calf SCD's. Fall risk score is moderate and bed alarm is activated.
[2022-09-19] MEDS: CEFAZOLIN 2 GM/100 ML PREMIX 100 ML IV (02:54)
[2022-09-19 03:50] VITALS: BP 106/70; PULSE 62; RESP 18; TEMP 35.9; O2SAT 97
[2022-09-19 06:08] LABS: Hematocrit 35.4 % (36-46); Hemoglobin 11.9 g/dL (12.0-16.0)
[2022-09-19] MEDS: IBUPROFEN 400 MG TABLET PO ×2 (06:14→11:33)
[2022-09-19] MEDS: LEVOTHYROXINE 125 MCG TABLET PO (06:15)
[2022-09-19] MEDS: ACETAMINOPHEN 325 MG TABLET 650 MG PO ×2 (06:15→11:34)
--- NOTE | 2022-09-19 06:58 | PM.DS.1 ---
History of Present Illness History of Present Illness Date Patient Seen: 09/19/22 Time Patient Seen: 06:58 Chief complaint: Hip pain Narrative: Right hip pain is mild. Denies fever chills. No nausea vomiting. Patient has been up to use the bedside commode couple times overnight. Patient's daughter is available to take her home. Patient does live alone. She has no steps in her house. She does have close friends that can check on her. Discharge Providers Provider Discharge Date: 09/19/22 Primary care physician: Darcie Gonzalez PA-C Consults: 09/11/22 09:33 Consult to Workers Compensation Legal Secretary Routine Comment: Pt lives alone on [address], daughter lives [place] 09/18/22 06:00 Consult to Anesthesiology Routine Comment: Consulting Provider: Anesthesiologist Reason for consultation: Regional block for post operative pain control 09/18/22 13:03 Consult to Discharge Planning Routine Comment: Consult to Physical Therapy Evaluate & Treat Comment: Physician Instructions: post op ORLY protocol Discharge provider: Carlin Stack PA-C Summary Hospital Course Discharge Diagnosis: Severe right hip osteoarthritis Hospital Course: Right total hip arthroplasty, posterior approach Same procedure as scheduled: Yes Indications: The patient has had progressively worsening right hip pain with radiographic changes consistent with arthritis. Non-operative management has failed and the patient has requested total hip replacement. The risks, benefits and alternatives to surgery were discussed with the patient prior to proceeding. Risks discussed included, but were not limited to, failure to relieve pain, leg length discrepancy, dislocation, stiffness, infection, nerve damage, deep venous thrombosis, pulmonary embolism, stroke, coma, heart attack, permanent paralysis and , as well as the potential need for eventual revision of the prosthetic. Surgeon: Kait Peace [employer]: Carlin Stack Anesthesia Type: General Operative Notes Findings: Severe right hip osteoarthritis, adequate stability Closure Type: primary Specimen(s): none sent Prosthetic devices, grafts, tissues, transplants, or devices: Peace and nephew anthology 4 femur standard offset, one 6.5 mm screw, neutral poly liner, 46 mm R3, 28 by +0 oxinium Estimated Blood Loss (mL): 250 Blood products transfused: none Patient admitted to the hospital for right total hip arthroplasty, posterior approach. Patient consented to the same. Patient taken operating room on September 18, 2022. Patient back in her room recovering well as in stable condition. Weightbearing as tolerated. Posterior hip precautions. Patient will mobilize with physical therapy. Patient will be discharged home today after physical therapy if safe for home environment Exam Vital Signs (past 8 hours): - 09/19/22 00:12 09/18/22 23:30 09/19/22 03:50 Temperature 97.8 F 96.7 F L Pulse Rate 66 62 Respiratory Rate 18 18 Blood Pressure 110/68 106/70 Pulse Oximetry 95 97 Oxygen Delivery Method Room Air Oxygen Flow Rate 0 0 Oxygen Delivery Method Room Air Oxygen Flow Rate 0 Narrative Exam Narrative: Pleasant 71-year-old female sitting at bedside in no apparent distress. Dressing is clean, dry and intact. Digna dressing is on and functioning. Neurovascular status is intact bilateral lower extremities. Const General: cooperative and comfortable Nutritional Appearance: well nourished Orientation: alert Resp Effort & Inspection: normal respiratory effort and able to speak in complete sentences Objective Labs 09/19/22 05:30 Labs: Laboratory Results - last 24 hr 09/18/22 09/19/22 09:15 05:30 Hgb 11.9 L Hct 35.4 L SARS-CoV-2 (PCR) Negative [facility] Medical History AK (actinic keratosis) (~2011) Alcohol abuse Alcohol abuse, uncomplicated Breast cancer (~2014) Chronic cough (~2004) Difficulty sleeping Fibroids Gastric reflux (~1999) Sekou's thyroiditis Hip pain History of shingles Hypothyroidism, unspecified (~1994) Invasive ductal carcinoma of left breast (~2015) Joint pain (~2004) Lipid screening Macular degeneration (~2014) Major depressive disorder, recurrent, moderate Mumps (~195) Obesity Osteoarthritis of left hip Osteopenia Other specified disorders of bone density and structure, unspecified site Postmenopausal Primary localized osteoarthrosis of pelvic region Right knee DJD Routine general medical examination at health care facility Scar Tear of meniscus of left knee Vision disorder Surgical History Anesthesia H/O rotator cuff surgery (~07/1994) History of ankle surgery History of cholecystectomy (~08/2000) History of hip replacement (~2017) History of hysterectomy (~11/2004) History of lumpectomy of left breast (~2015) History of tonsillectomy Status post rotator cuff repair Family History Sister Breast cancer Father Heart disease Brother Heart disease Diabetes mellitus Family/Other Stomach cancer Mother Hypertension Grandfather Cancer Grandmother Stroke Grandfather Heart disease Grandmother Cancer Social History household members: none Smoking Status: Never smoker alcohol intake: current Discharge Assessment & Plan Assessment and Plan Assessment: Patient progressing as expected status post right total hip arthroplasty, posterior approach Plan of Treatment: Weight-bearing as tolerated Posterior hip precautions Multimodal pain management Follow-up in 2 weeks Discharge home today after physical therapy if safe for home environment. Discharge Plan Discharge Plan Patient Disposition: Home Provider Discharge Comment: Discharge home after physical therapy if safe for home environment Discharge orders & Medications Discharge Orders: Discharge (Order); Ordered 09/19/22 Ordered By: Carlin Stack Prescriptions: New acetaminophen 325 mg Tablet 650 mg PO Q6HR Qty: 60 0RF aspirin 81 mg Tablet,Delayed Release (Dr/Ec) 81 mg PO BID Qty: 60 0RF ibuprofen 400 mg Tablet 400 mg PO Q6HR Qty: 60 0RF docusate sodium 100 mg Capsule 100 mg PO BID Qty: 10 0RF oxycodone 5 mg Tablet 5 mg PO Q3HR PRN (Reason: Pain, Moderate (4-6)) Qty: 40 0RF Continued naltrexone 50 mg Tablet 0.45 mg PO DAILY bupropion HCl 100 mg tablet 100 mg PO DAILY levothyroxine 112 mcg capsule 125 mcg PO DAILY PreserVision AREDS-2 250-90-40-1 mg Capsule 1 tab PO BID Discontinued ibuprofen 200 mg Tablet 200 mg PO DAILY PRN (Reason: Pain) Follow up/Referrals: Darcie Gonzalez PA-C [Primary Care Provider] - Kait Peace MD [Physician] - (2 weeks as scheduled) Diet/Activity/Treatments Diet: Diet as Tolerated Activity: Weight-bearing as tolerated, posterior hip precautions Cold/Heat Therapy: Ice as needed Skin/Wound/Dressing Care Report to your healthcare provider any signs of infection, such as:: chills, fever, night sweats, increased pain, unusual drainage and unusual redness Dressing: Keep dressing clean and dry, digna instructions reviewed. May clip tubing at its base once monitor shuts off. Cover with extra supplies as instructed. Visit Report/Discharge Packet Instructions: DI for Hip Replacement Stand Alone Forms: Patient Portal/API, Surgery Discharge Discharge Data Primary Care Provider: Darcie Gonzalez Attending Provider: Kait Peace
[2022-09-19 08:22] VITALS: BP 107/70; PULSE 62; RESP 18; TEMP 36.7; O2SAT 100
[2022-09-19] MEDS: buPROPion 100 MG TABLET PO (08:50)
[2022-09-19] MEDS: NALTREXONE 4.5 MG 4.5 EACH PO (08:50)
[2022-09-19] MEDS: DOCUSATE 100 MG CAPSULE PO (08:50)
[2022-09-19] MEDS: VIT C/E/ZN/COPPR/LUTEIN/ZEAXAN CAPSULE 1 CAP PO (08:50)
[2022-09-19] MEDS: ASPIRIN EC 81 MG TABLET PO (08:50)
--- NOTE | 2022-09-19 09:42 | PT.IPTN ---
Current Diagnoses Unilateral primary osteoarthritis, left hip (09/18/22) Surgery Performed Operation Date: 09/18/22 10:45 Actual Procedures p Total Hip Arthroplasty(Right) - Kait Peace MD Physical Therapy Treatment Note M2 PT-IP Current Condition Start: 09/18/22 17:12 Freq: NEEDED Status: Active Protocol: Document 09/18/22 16:08 DCW (Rec: 09/18/22 17:42 DCW [id number]) Physical Therapy Current Condition Current Condition Evaluation Date 09/18/22 Treatment Diagnosis R ORLY Onset Date 09/18/22 M3 PT-IP Subjective Start: 09/18/22 17:12 Freq: NEEDED Status: Active Protocol: Document 09/19/22 09:28 MED (Rec: 09/19/22 09:41 LJ [id number]) Subjective Physical Therapy Visit Type Type Treatment Note Visit Start Time 08:26 Visit Stop Time 08:45 Total Visit Minutes 19 Notes Py in bed. Willing to work with PT in order to go home today. States she ellison a new bed which she will sleep on which will elevate the head of the bed. Physical Therapy Visit Comments Patient Goals Return home Therapy Pain Assessment Pain Present Pain Present Pain Reported M4 PT-IP Mobility and Gait Start: 09/18/22 17:12 Freq: NEEDED Status: Active Protocol: Document 09/19/22 09:28 MED (Rec: 09/19/22 09:41 LJ [id number]) PT-Bed Mobility Assessment Supine to Sit Supine to Sit Standby Assistance,Head of Bed Elevated,Bedrails Scooting Scooting to Edge of Bed Standby Assistance PT-Transfer Assessment Sit to and From Stand Sit to and from Stand Contact Guard Assistance,1 Person Assistance,Use of Upper Extremities Equipment Transfer Assistive Device Gait Belt,4 Wheeled Walker Transfers Transfer Destination Chair Transfer Technique ambulated Transfer Ability Level of Assist Standby Assistance Comments Mobility Comments Pt able to perform bed mobility SBA using bed rails and cues for scooting to EOB. Transfers SBA with use of 4WW Gait Assessment Gait Gait Assistance Required: Standby Assistance Distance (Feet) 150 Able to Maintain Weight Bearing Status Yes During Gait Assistive Devices Assistive Device Gait Belt,4 Wheeled Walker Orthotic/Prosthetic Devices or Brace: No Gait Deviations General Gait Pattern Antalgic,Decreased Stride Length,Flexed Trunk Factors Limiting Gait Function Factors Limiting Gait Function Decreased Activity Tolerance, Decreased Strength,Pain,Poor Balance Comments Gait Comments Pt ambulated in hallway to stairs suing 4WW. Completed stairs then ambulated back to room and requested to sit on window couch to organize her personal belongings and get ready for DC. Cues for extending trunk during ambulation. Stair Climbing Assessment Evaluation Level of Assist On Stairs Standby Assistance Devices Stair Climbing Assistive Devices Left Railing,Right Railing Technique/Endurance Stair Climbing Direction Ascend and Descend Stair Climbing Technique Step to Step Number of Steps Climbed 3 Stair Climbing Set # Repetitions (reps) 3 Comments Stair Climbing Comments Pt safely completed stairs x3 using bilateral rails M5 PT-IP Objective Assessments Start: 09/18/22 17:12 Freq: NEEDED Status: Active Protocol: Document 09/18/22 16:08 DCW (Rec: 09/18/22 17:42 DCW [id number]) Orientation Orientation/Cognition Level of Alertness Alert Orientation Name,Birthday,Date,Place, Situation Language Function Ability No Deficits Noted Safety Awareness Understands Safety Issues Memory Description No Deficits Noted Gross Range of Motion Lower Extremity ROM Assessment Right Impaired Impairments Restricted due to posterior hip precautions Strength Lower Extremity Strength Assessment Right Impaired M6 PT-IP Treatment Start: 09/18/22 17:12 Freq: NEEDED Status: Active Protocol: Document 09/19/22 09:28 MED (Rec: 09/19/22 09:41 [id number]) Physical Therapy Treatment Education Education Provided Precautions,Post-Op Packet M7 PT-IP Assessment and Plan Start: 09/18/22 17:12 Freq: NEEDED Status: Active Protocol: Document 09/19/22 09:28 (Rec: 09/19/22 09:41 [id number]) PT Summary Assessment and Plan Potential Rehabilitation Potential Good Status of Condition at Evaluation Stable Summary Impairments Pain,ROM,Strength,Balance,Bed Mobility,Transfers,Gait, Activity Tolerance Progress Towards Goals Progressing Toward Goals,Safe For Discharge Assessment Summary Pt SBA for ambulation, stairs, and transfers using 4WW. Educated pt on precautions and operation of brakes on 4WW. Repeated until pt confident she could recall. Pt safe for DC to [place] with dtr and son- in-law assist getting home Goals Bed Mobility Goal Independent Transfer Goal Independent Gait Goal Independent,Four Wheel Walker Gait Distance 200 Other Goals Ascend/descend 16 steps SBA /c railing Days to Meet Goals 3 Frequency of Treatment Frequency Of Treatment Twice a Day Treatment Plan Physical Therapy Treatment Plan Bed Mobility Training,Transfer Training,Gait Training, Therapeutic Exercise,Post Op Education,Discharge Planning Precautions Posterior Hip Precautions No Hip Flexion > 90 degrees,No Hip Internal Rotation,No Hip Adduction Recommendations To Nursing Amount of Assist Needed Standby Assistance,1 Person Assist Discharge Recommendations PT Discharge Recommendations Home Health,Home vs SNF Transportation Needs at Discharge Private Vehicle
--- NOTE | 2022-09-19 12:50 | PC.NURSE ---
Day shift: Pt has HARPAL dressing box. HARPAL dressing is CDI and to suction with flashing green light. Paperwork signed and all questions answered. SMC intact w/ PPP. Daughter in room for teachings. scripts sent electronic to Pt's pharmacy. Left unit at approx [phone] via SAMANTHA. Jey by CLAY Almeida. Pt has all personal belongings.
[2022-09-19] MEDS: OXYCODONE IR 5 MG TABLET PO (13:05)
== END 2022-09-19 12:52 | disposition home or self-care (01) ==
LOC: OR 08:39 → AC 08:39
PROVIDERS: PCP Physician Assistant; Referring Provider Orthopaedic Surgery; Visit Provider Orthopaedic Surgery
PROC: 0SR90JZ Replacement of Right Hip Joint with Synthetic Substitute, Open Approach (ICD-10-PCS; CPT 27130; principal; 2022-09-18 10:45)
DX: M16.11 Unilateral primary osteoarthritis, right hip (principal); Z20.822 Contact with and (suspected) exposure to COVID-19
CPT/HCPCS: 27130; 36415; 72170; 73502; 85014; 85018; 87635; 97110; 97116; C1776; C9803; C9290; J0171; J0330; J0690; J1100; J2250; J2405; J2704; J3010

== ENCOUNTER → 2022-10-10 08:42 | Outpatient (CLI) | payer MEDICARE, SELFPAY ==
[2022-10-09 15:16] VITALS: BMI 33.1
[2022-10-10 20:38] LABS: Add Manual Diff / Slide Review NO; Basophils Absolute Auto 0 /uL (0-100); Basophils Percent Auto 0.6 % (0-2); Eosinophils Absolute Auto 200 /uL (0-450); Eosinophils Percent Auto 3.3 % (2-4); Hematocrit 40.2 % (36-46); Hemoglobin 13.3 g/dL (12.0-16.0); Lymphocytes Absolute Auto 1400 /uL (1100-4500); Lymphocytes Percent Auto 23.4 % (25-40); Mean Corpuscular HGB Conc 33.2 % (30-36); Mean Corpuscular Hemoglobin 31.6 PG (26-34); Mean Corpuscular Volume 95.1 fL (80-100); Monocytes Absolute Auto 400 /uL (0-900); Monocytes Percent Auto 6.9 % (3-14); Neutrophils Absolute Auto 3900 /uL (1500-7000); Neutrophils Percent Auto 65.8 % (50-75); Platelet Count 278 X10^3/uL (150-400); Red Blood Cell Count 4.23 X10^6/uL (4.0-5.2); Red Cell Distribution Width 14.3 % (11.6-14.8); White Blood Cell Count 5.9 X10^3/uL (4.5-11.0)
[2022-10-10 20:44] LABS: NT-proBNP (BNP-Adult 18+) 74 pg/mL (<125)
[2022-10-10 21:23] LABS: D Dimer 3830 ng/ml (<500)
== END ==
PROVIDERS: PCP Physician Assistant; Visit Provider Physician Assistant
DX: R06.02 Shortness of breath (principal); Z96.649 Presence of unspecified artificial hip joint; R60.0 Localized edema
CPT/HCPCS: 83880; 85025; 85379

== ENCOUNTER 2022-10-11 14:05 | Emergency (ER) | payer MEDICARE, SELFPAY ==
[2022-10-09 15:16] VITALS: BMI 33.1
[2022-10-11 14:16] VITALS: BP 157/86; PULSE 82; RESP 16; TEMP 36.6; O2SAT 100; BMI 37.2
--- NOTE | 2022-10-11 14:55 | DI.US.S_ITS ---
PROCEDURE: US PERIPH VENOUS LOW EXTREM BI INDICATIONS: bl edema post surgery TECHNIQUE: Real-time imaging, as well as color and pulse Doppler interrogation, were performed of the deep veins of both legs from the inguinal ligament to the popliteal fossa. COMPARISON: None. FINDINGS: Right: The common femoral, femoral and popliteal veins are normally compressible, and free of intraluminal thrombus. Color and pulse Doppler demonstrate normal phasic intravascular flow. There is normal augmentation response to distal compression maneuver. Left: The common femoral, femoral and popliteal veins are normally compressible, and free of intraluminal thrombus. Color and pulse Doppler demonstrate normal phasic intravascular flow. There is normal augmentation response to distal compression maneuver. IMPRESSION: No lower extremity DVT in either leg. Dictated by: Dominic Sen M.D. on 10/11/2022 at 16:14 Approved by: Dominic Sen M.D. on 10/11/2022 at 16:16
--- NOTE | 2022-10-11 16:42 | ED_ITS ---
HPI - Recheck/Abnormal Lab/Rx General Chief Complaint: Recheck/Abnormal Lab/Rx Stated Complaint: sent by DR gardner. blood clot Time Seen by Provider: 10/11/22 14:20 Source: patient Mode of arrival: Ambulatory History of Present Illness HPI narrative: Patient is a 71-year-old female with history of breast cancer, osteoarthritis, hypothyroid, recent right total hip arthroplasty on September 18 presenting today request PCP for elevated D-dimer and bilateral lower extremity swelling. Patient reports that her right hip recovery is not going as well as her left hip recovery. Her pain is well controlled but she is not really getting up and mo ving around. Unfortunately home health not really started she has not been able to do physical therapy yet but that is to start in the next 5 days. She is ambulatory but mostly not moving much. She reports that she is had increased weight gain 15 lb swelling in both legs feels like her abdomen is bloated. She denies any chest pain shortness breath palpitations or fever. D-dimer was checked as an outpatient and is greater than 3800. Related Data Home Medications Medication Instructions Recorded Confirmed bupropion HCl 100 mg tablet 100 mg PO DAILY 07/25/22 09/18/22 levothyroxine 112 mcg capsule 125 mcg PO DAILY 07/25/22 09/18/22 naltrexone 50 mg tablet 0.45 mg PO DAILY 07/25/22 09/18/22 vit C 250 mg-vit E 90 mg-zinc 40 1 tab PO BID 09/11/22 09/18/22 mg-copper 1 [id number] capsule (PreserVision AREDS-2) Previous Rx's Medication Instructions Recorded acetaminophen 325 mg tablet 650 mg PO Q6HR #60 tabs 09/19/22 aspirin 81 mg tablet,delayed 81 mg PO BID #60 tabs 09/19/22 release docusate sodium 100 mg capsule 100 mg PO BID #10 caps 09/19/22 ibuprofen 400 mg tablet 400 mg PO Q6HR #60 tabs 09/19/22 oxycodone 5 mg tablet 5 mg PO Q3HR PRN Pain, Moderate 09/19/22 (4-6) #40 tabs furosemide 20 mg tablet 20 mg PO DAILY #4 tabs 10/11/22 Allergies Allergy/AdvReac Type Severity Reaction Status Date / Time shellfish derived Allergy Mild Puff Up Verified 10/11/22 14:21 Review of Systems Review of Systems ROS Unobtainable: All systems reviewed & are unremarkable except as noted in HPI and below Patient History Medical History AK (actinic keratosis) (~2011) Alcohol abuse Alcohol abuse, uncomplicated Breast cancer (~2014) Chronic cough (~2004) Difficulty sleeping Fibroids Gastric reflux (~1999) Sekou's thyroiditis Hip pain History of shingles Hypothyroidism, unspecified (~1994) Invasive ductal carcinoma of left breast (~2015) Joint pain (~2004) Lipid screening Macular degeneration (~2014) Major depressive disorder, recurrent, moderate Mumps (~1955) Obesity Osteoarthritis of left hip Osteopenia Other specified disorders of bone density and structure, unspecified site Postmenopausal Primary localized osteoarthrosis of pelvic region Right knee DJD Routine general medical examination at health care facility Scar Tear of meniscus of left knee Vision disorder Surgical History Anesthesia H/O rotator cuff surgery (~07/1994) History of ankle surgery History of cholecystectomy (~08/2000) History of hip replacement (~2017) History of hysterectomy (~11/2004) History of lumpectomy of left breast (~2015) History of tonsillectomy Status post rotator cuff repair Family History Sister Breast cancer Father Heart disease Brother Heart disease Diabetes mellitus Family/Other Stomach cancer Mother Hypertension Grandfather Cancer Grandmother Stroke Grandfather Heart disease Grandmother Cancer Social History household members: none Smoking Status: Never smoker alcohol intake: current Smoking Status: Never smoker alcohol intake frequency: a few times a week Substance Use Type: does not use Exam Initial Vital Signs Initial Vital Signs: Vital Signs Temperature 97.9 F 10/11/22 14:16 Pulse Rate 82 10/11/22 14:16 Respiratory Rate 16 10/11/22 14:16 Blood Pressure 157/86 H 10/11/22 14:16 Pulse Oximetry 100 10/11/22 14:16 Oxygen Delivery Method Room Air 10/11/22 14:16 GENERAL: Alert pleasant 71-year-old female and in no acute distress. HEENT: Head atraumatic,EOMI, pupils reactive, face symmetric, moist mucous membranes CARDIOVASCULAR: Regular rate and rhythm without murmurs, rubs or gallops. RESPIRATORY: Breath sounds equal bilaterally, no wheezes rales or rhonchi. ABDOMEN: Soft, nontender. Normoactive bowel sounds all 4 quadrants. No guarding or rebound. : No CVA tenderness EXTREMITIES: Normal range of motion, no clubbing. +2 pitting edema bilaterally Neurovascularly intact NEUROLOGICAL: Alert and oriented x4. SKIN: Warm, dry, no laceration, no petechiae, no rashes or lesions. Course Orders Ordered: ED Orders 10/11/22 14:55 US periph venous low extrem bi Stat 10/11/22 16:30 BNP [NT-proBNP (BNP-Adult 18+)] Stat CBC Auto Diff [Complete Blood Count AUTO DIFF] Stat CMP [Comprehensive Metabolic Panel] Stat Troponin & CK Cardiac Panel Stat 10/11/22 16:43 CT angio chest PE protocol Stat 10/11/22 16:44 EKG-12 Lead Stat Vital Signs Vital signs: Vital Signs - 8 hr 10/11/22 14:16 10/11/22 18:17 Temperature 97.9 F Pulse Rate 82 77 Respiratory Rate 16 16 Blood Pressure 157/86 H 139/70 Pulse Oximetry 100 96 Oxygen Delivery Method Room Air Room Air MDM - Recheck/Abnormal Lab/Rx Lab Data 10/11/22 16:30 10/11/22 16:30 Labs: Lab Results 10/11/22 10/11/22 Range/Units 16:30 16:30 WBC 5.3 (4.5-11.0) X10^3/uL RBC 3.87 L (4.0-5.2) X10^6/uL Hgb 12.3 (12.0-16.0) g/dL Hct 36.4 (36-46) % MCV 93.9 (80-100) fL MCH 31.8 (26-34) PG MCHC 33.8 (30-36) % RDW 13.8 (11.6-14.8) % Plt Count 238 (150-400) X10^3/uL Neut % (Auto) 58.9 (50-75) % Lymph % (Auto) 28.2 (25-40) % Whitley % (Auto) 8.6 (3-14) % Eos % (Auto) 4.0 (2-4) % Baso % (Auto) 0.3 (0-2) % Neut # (Auto) 3100 (1752-3815) /uL Lymph # (Auto) 1500 (7233-8760) /uL Whitley # (Auto) 500 (0-900) /uL Eos # (Auto) 200 (0-450) /uL Baso # (Auto) 0 (0-100) /uL Sodium 138 (137-145) mmol/L Potassium 4.0 (3.4-5.1) mmol/L Chloride 105 (98-107) mmol/L Carbon Dioxide 28 (22-32) mmol/L BUN 15 (7-17) mg/dL Creatinine 0.69 (0.52-1.04) mg/dL Estimated GFR > 60 (>60) mL/min BUN/Creatinine Ratio 21.7 (6-22) Glucose 85 (80-110) mg/dL Calcium 8.9 (8.4-10.2) mg/dL Total Bilirubin 0.2 (0.2-1.3) mg/dL AST 23 (14-36) IU/L ALT 15 (<35) IU/L Alkaline Phosphatase 73 (38-126) U/L Total Creatine Kinase 36 (30-135) U/L CK-MB (CK-2) TNP CK-MB (CK-2) Rel Index TNP Troponin I < 0.012 (0.01-0.034) ng/mL NT-Pro-B Natriuret Pep 115 (<125) pg/mL Total Protein 6.4 (6.3-8.2) g/dL Albumin 3.6 (3.5-5.0) g/dL Globulin 2.8 (1.7-4.1) g/dL Albumin/Globulin Ratio 1.3 (1.0-2.8) Imaging Data CT scan - chest: Radiologist's Impression: PROCEDURE: CT HEAD/BRAIN WO CON INDICATIONS: confusion prior fall TECHNIQUE: Noncontrast 4.5 mm thick angled axial sections acquired from the foramen magnum to the vertex, with coronal and sagittal reformats. For radiation dose reduction, the following was used: automated exposure control, adjustment of mA and/or kV according to patient size. COMPARISON: [facility], CT, CT HEAD/BRAIN WO CON, 10/03/2022, 19:44. [facility], CT, CT HEAD/BRAIN WO CON, 10/04/2022, 0:17. FINDINGS: Image quality: Excellent. CSF spaces: Basal cisterns are patent. No extra-axial fluid collections. The ventricles are symmetric in size and shape. Brain: No intracranial bleeds or masses. There is cerebral volume loss for age, with resultant ventricular and sulcal prominence. There are periventricular and deep white matter chronic small vessel ischemic changes. A few scattered apparent remote lacunar infarcts can be seen. There is intracranial internal carotid artery atherosclerosis. Skull and face: Mild hematoma can be seen involving the central/right forehead, which is improved compared to the prior head CT. Calvarium and visualized facial bones appear intact, without suspicious lesions. Sinuses: Visualized sinuses and mastoids are clear. IMPRESSION: No acute intracranial hemorrhage is seen. No acute intracranial process is seen. Central/right forehead hematoma seen, which is improved compared to the prior. Dictated by: Rogelio Feliciano M.D. on 10/11/2022 at 14:10 US - DVT: Radiologist's Impression: PROCEDURE:? US PERIPH VENOUS LOW EXTREM BI ? INDICATIONS:? bl edema post surgery ? TECHNIQUE:? Real-time imaging, as well as color and pulse Doppler interrogation, were performed of the deep veins of both legs from the inguinal ligament to the popliteal fossa.? ? COMPARISON:? None. ? FINDINGS:? ? Right: The common femoral, femoral and popliteal veins are normally compressible, and free of intraluminal thrombus.? Color and pulse Doppler demonstrate normal phasic intravascular flow.? There is normal augmentation response to distal compression maneuver.? ? Left: The common femoral, femoral and popliteal veins are normally compressible, and free of intraluminal thrombus.? Color and pulse Doppler demonstrate normal phasic intravascular flow.? There is normal augmentation response to distal compression maneuver.? ? ? IMPRESSION:? No lower extremity DVT in either leg. ? ? Dictated by: Dominic Sen M.D. on 10/11/2022 at 16:14 ? ? ECG Data Interpretation: Normal sinus rhythm rate 69 CA interval 172 QRS [address] changes no T- wave inversions Q-waves noted in lead 3 and AVF without ischemia MDM Narrative Medical decision making narrative: Patient 71-year-old female presents with bilateral lower extremity edema postop about 3 weeks without any shortness of breath however significantly elevated D- dimer of 3800. CT angio does not show any pulmonary embolism DVT is negative. She does report weight gain. BNP is 115 troponin negative. She overall appears comfortable she is no conversational dyspnea. Suspect that she has some fluid retention causing her lower extremity edema. Will start her on a short course of Lasix. There is no evidence of infection she is no leukocytosis or anemia. Discharge Plan Departure Patient Disposition: Home Clinical Impression: Edema of both lower legs Instructions: DI for Peripheral Edema -- Bilateral Activity Restrictions/Additional Instructions: *You have been diagnosed with lower extremity edema *What to do: I suspect that you have some fluid retention. Will put you on a water pill for a few days to see if that helps. There is no events of any blood clot in legs or lungs *Continue to take medications as directed Lasix 20 mg once daily for 4 days--> SENT TO [facility] *Follow up with your primary care provider in 2-3 days or call [phone] *Return to ER if you should have increasing lower extremity swelling, chest pain shortness of breath, fever chills [or] any new, worsening or concerning symptoms Prescriptions: New furosemide 20 mg tablet 20 mg PO DAILY Qty: 4 0RF No Action naltrexone 50 mg Tablet 0.45 mg PO DAILY bupropion HCl 100 mg tablet 100 mg PO DAILY levothyroxine 112 mcg capsule 125 mcg PO DAILY PreserVision AREDS-2 250-90-40-1 mg Capsule 1 tab PO BID acetaminophen 325 mg Tablet 650 mg PO Q6HR Qty: 60 0RF aspirin 81 mg Tablet,Delayed Release (Dr/Ec) 81 mg PO BID Qty: 60 0RF ibuprofen 400 mg Tablet 400 mg PO Q6HR Qty: 60 0RF docusate sodium 100 mg Capsule 100 mg PO BID Qty: 10 0RF oxycodone 5 mg Tablet 5 mg PO Q3HR PRN (Reason: Pain, Moderate (4-6)) Qty: 40 0RF Referrals: Darcie Gonzalez PA-C [Primary Care Provider] - Stand Alone Forms: Patient Portal/API
--- NOTE | 2022-10-11 16:43 | DI.CT.S_ITS ---
PROCEDURE: CT ANGIO CHEST PE PROTOCOL INDICATIONS: high dimer post op TECHNIQUE: After the administration of intravenous contrast, 2 mm thick sections acquired from the pulmonary apices to the posterior costophrenic angles. 3-dimensional maximum intensity projection (MIP) coronal and sagittal reformats were then acquired through the thorax. For radiation dose reduction, the following was used: automated exposure control, adjustment of mA and/or kV according to patient size. COMPARISON: None. FINDINGS: Image quality: There is mild motion. Lungs and pleura: Basal suspected scarring/atelectasis. Mediastinum, heart, and esophagus: The distal pulmonary arteries are difficult to evaluate due to motion. No central pulmonary embolism. Possible tiny hiatal hernia. Heart size is at the upper limit of normal. There are coronary calcifications. No pathologic adenopathy by size criteria. Chest wall and thyroid: Unremarkable Left breast clips. Upper abdomen: Unremarkable on these limited arterial phase images. Cholecystectomy clips are present. Bones: Degenerative changes without acute or suspicious osseous lesion. IMPRESSION: No pulmonary embolism. The distal arteries are difficult to evaluate due to mild motion artifact. No dense airspace consolidation or pleural effusion identified. Other findings as above. Dictated by: Paddy Cox M.D. on 10/11/2022 at 17:18 Approved by: Paddy Cox M.D. on 10/11/2022 at 17:22
[2022-10-11 16:54] LABS: Add Manual Diff / Slide Review NO; Basophils Absolute Auto 0 /uL (0-100); Basophils Percent Auto 0.3 % (0-2); Eosinophils Absolute Auto 200 /uL (0-450); Hematocrit 36.4 % (36-46); Hemoglobin 12.3 g/dL (12.0-16.0); Lymphocytes Absolute Auto 1500 /uL (1100-4500); Lymphocytes Percent Auto 28.2 % (25-40); Mean Corpuscular HGB Conc 33.8 % (30-36); Mean Corpuscular Hemoglobin 31.8 PG (26-34); Mean Corpuscular Volume 93.9 fL (80-100); Monocytes Absolute Auto 500 /uL (0-900); Monocytes Percent Auto 8.6 % (3-14); Neutrophils Absolute Auto 3100 /uL (1500-7000); Neutrophils Percent Auto 58.9 % (50-75); Platelet Count 238 X10^3/uL (150-400); Red Blood Cell Count 3.87 X10^6/uL (4.0-5.2); Red Cell Distribution Width 13.8 % (11.6-14.8); White Blood Cell Count 5.3 X10^3/uL (4.5-11.0)
[2022-10-11 17:00] LABS: Alanine Aminotransferase 15 IU/L (<35); Albumin 3.6 g/dL (3.5-5.0); Albumin Globulin Ratio 1.3 (1.0-2.8); Alkaline Phosphatase 73 U/L (38-126); Aspartate Aminotransferase 23 IU/L (14-36); BUN Creatinine Ratio 21.7 (6-22); Bilirubin Total 0.2 mg/dL (0.2-1.3); Blood Urea Nitrogen 15 mg/dL (7-17); Calcium 8.9 mg/dL (8.4-10.2); Carbon Dioxide 28 mmol/L (22-32); Chloride 105 mmol/L (98-107); Creatine Kinase 36 U/L (30-135); Estimated Glomerular Filt Rate > 60 mL/min (>60); Globulin 2.8 g/dL (1.7-4.1); Glucose 85 mg/dL (80-110); HEMOLYSIS < 15 (0-50); Sodium 138 mmol/L (137-145); Total Protein 6.4 g/dL (6.3-8.2)
[2022-10-11 17:10] LABS: NT-proBNP (BNP-Adult 18+) 115 pg/mL (<125); Troponin I < 0.012 ng/mL (0.01-0.034)
[2022-10-11 18:17] VITALS: BP 139/70; PULSE 77; RESP 16; O2SAT 96
== END 2022-10-11 18:18 | disposition home or self-care (01) ==
PROVIDERS: Emergency Provider Emergency Medicine; PCP Physician Assistant
DX: R60.0 Localized edema (principal); R41.0 Disorientation, unspecified; R79.89 Other specified abnormal findings of blood chemistry
CPT/HCPCS: 36415; 71275; 80053; 82550; 83880; 84484; 85025; 93005; 93970; 99283; 99284; Q9967

== ENCOUNTER → 2023-07-03 11:49 | Outpatient (CLI) | payer MEDICARE, SELFPAY ==
[2022-10-09 15:16] VITALS: BMI 33.1
[2023-07-03 20:24] LABS: TSH w/ Reflex to FT4 0.55 uIU/mL (0.47-4.68)
== END ==
PROVIDERS: PCP Physician Assistant Medical; Visit Provider Physician Assistant Medical
DX: E03.9 Hypothyroidism, unspecified (principal)
CPT/HCPCS: 84443

== ENCOUNTER → 2024-08-13 08:52 | Outpatient (CLI) | payer MEDICARE, SELFPAY ==
[2022-10-09 15:16] VITALS: BMI 33.1
[2024-08-13 20:24] LABS: Add Manual Diff / Slide Review NO; Basophils Absolute Auto 0 /uL (0-100); Basophils Percent Auto 0.5 % (0-2); Eosinophils Absolute Auto 100 /uL (0-450); Eosinophils Percent Auto 1.9 % (2-4); Hematocrit 43.8 % (36-46); Hemoglobin 14.6 g/dL (12.0-16.0); Lymphocytes Absolute Auto 1700 /uL (1100-4500); Lymphocytes Percent Auto 32.3 % (25-40); Mean Corpuscular HGB Conc 33.3 % (30-36); Mean Corpuscular Hemoglobin 30.8 PG (26-34); Mean Corpuscular Volume 92.4 fL (80-100); Monocytes Absolute Auto 500 /uL (0-900); Monocytes Percent Auto 9.7 % (3-14); Neutrophils Absolute Auto 3000 /uL (1500-7000); Neutrophils Percent Auto 55.6 % (50-75); Platelet Count 219 X10^3/uL (150-400); Red Blood Cell Count 4.74 X10^6/uL (4.0-5.2); Red Cell Distribution Width 12.8 % (11.6-14.8); White Blood Cell Count 5.4 X10^3/uL (4.5-11.0)
[2024-08-13 20:25] LABS: Hemoglobin A1C% w Est Avg Glu 4.9 % (4.0-6.0)
[2024-08-13 20:30] LABS: Alanine Aminotransferase 28 IU/L (<35); Albumin 4.1 g/dL (3.5-5.0); Albumin Globulin Ratio 1.7 (1.0-2.8); Alkaline Phosphatase 91 U/L (38-126); Aspartate Aminotransferase 38 IU/L (14-36); BUN Creatinine Ratio 19.8 (6-22); Bilirubin Total 0.5 mg/dL (0.2-1.3); Blood Urea Nitrogen 16 mg/dL (7-17); Calcium 9.5 mg/dL (8.4-10.2); Carbon Dioxide 30 mmol/L (22-32); Chloride 104 mmol/L (98-107); Cholesterol 239 mg/dL (140-199); Estimated Glomerular Filt Rate > 60 mL/min (>60); Globulin 2.4 g/dL (1.7-4.1); Glucose 92 mg/dL (80-110); HDL Cholesterol 61 mg/dL (40-60); HEMOLYSIS 24 (0-50); LDL Cholesterol Calculated 159 mg/dL (<100); Potassium 4.7 mmol/L (3.4-5.1); Sodium 139 mmol/L (137-145); Total Protein 6.5 g/dL (6.3-8.2); Triglycerides 95 mg/dL (35-150)
== END ==
PROVIDERS: PCP Physician Assistant Medical; Visit Provider Family Medicine
DX: D64.9 Anemia, unspecified (principal); E03.9 Hypothyroidism, unspecified; Z13.1 Encounter for screening for diabetes mellitus; F10.20 Alcohol dependence, uncomplicated; Z13.6 Encounter for screening for cardiovascular disorders; E66.9 Obesity, unspecified
CPT/HCPCS: 80053; 80061; 83036; 84443; 85025

== ENCOUNTER → 2024-09-15 14:56 | Outpatient (CLI) | payer MEDICARE, SELFPAY ==
[2022-10-09 15:16] VITALS: BMI 33.1
--- NOTE | 2024-09-15 14:58 | DI.RAD.S_ITS ---
PROCEDURE: XR DEXA AXIAL SKELETON INDICATIONS: bone density COMPARISON: None. FINDINGS: Lumbar Spine: (L1-L4). Bone mineral density 1.017 g/cm2, T score -0.3. Left Forearm: Bone mineral density 0.612 g/cm2, T score -1.4. (T score greater or equal to -1.0 to: NORMAL) (T score from -1.1 to -2.4: OSTEOPENIA) (T score less than or equal to -2.5: OSTEOPOROSIS) IMPRESSION: Osteopenia. Follow-up guidelines as follows: Osteoporosis: Consider a repeat DEXA and Vertebral Fracture Assessment (VFA) exam in 2 years or sooner if medically necessary, to reassess this patient's status. Osteopenia: Consider a repeat DEXA in 2-3 years to reassess this patient's status, or if there is a new clinical indication. Normal: Consider a repeat DEXA in 5 years or sooner, or if there is a new clinical indication. All treatment decisions require clinical judgment and consideration of individual patient factors, including patient preferences, comorbidities, previous drug use, risk factors not captured in the FRAX model (e.g., frailty, falls, vitamin D deficiency, increased bone turnover, interval significant decline in bone density ) and possible under- or over-estimation of fracture risk by FRAX. In addition, the NOF Guide recommends that FDA-approved medical therapies be considered in postmenopausal women and men age >= 50 years with a: * Hip or vertebral (clinical or morphometric) fracture * T-score of <=-2.5 at the spine or hip * Ten-year fracture probability by FRAX of >= 3% for hip fracture or >=20% for major osteoporotic fracture. Dictated by: Dominic Sen M.D. on 09/16/2024 at 16:20 Approved by: Dominic Sen M.D. on 09/16/2024 at 16:21
== END ==
LOC: RAD 14:58
PROVIDERS: PCP Family Medicine; Referring Provider Family Medicine; Visit Provider Family Medicine
DX: M85.832 Other specified disorders of bone density and structure, left forearm (principal); Z78.0 Asymptomatic menopausal state
CPT/HCPCS: 77080

== ENCOUNTER → 2024-11-25 09:18 | Outpatient (CLI) | payer MEDICARE, SELFPAY ==
[2022-10-09 15:16] VITALS: BMI 33.1
[2024-11-25 19:08] LABS: Cholesterol 221 mg/dL (140-199); HDL Cholesterol 58 mg/dL (40-60); LDL Cholesterol Calculated 149 mg/dL (<100); Triglycerides 72 mg/dL (35-150)
[2024-11-25 19:37] LABS: Thyroid Stimulating Hormone 0.476 uIU/mL (0.47-4.68)
== END ==
PROVIDERS: PCP Family Medicine; Visit Provider Family Medicine
DX: E03.9 Hypothyroidism, unspecified (principal); E78.2 Mixed hyperlipidemia
CPT/HCPCS: 80061; 84443